=== PATIENT | male | born 2005 | race Caucasian/White ===

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

== ENCOUNTER 2023-05-27 00:06 | Emergency (ER) | payer BC, MEDICAID, SELFPAY ==
[2023-05-27 00:08] VITALS: BP 133/73; PULSE 68; RESP 18; TEMP 37; O2SAT 97; BMI 21.4
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
[2023-05-27] MEDS: amoxicillin-clav 875-125 mg Tablet 1 TAB PO (00:24)
[2023-05-27] MEDS: bacitracin ointment Pkt 1 EACH TOPICAL (00:25)
== END 2023-05-27 00:34 | disposition home or self-care (01) ==
PROVIDERS: Emergency Provider Nurse Practitioner Family
DX: S61.354A Open bite of right ring finger with damage to nail, initial encounter (principal); Y04.1XXA Assault by human bite, initial encounter; Z72.0 Tobacco use; Y07.54 Acquaintance or friend, perpetrator of maltreatment and neglect
CPT/HCPCS: 99283

== ENCOUNTER 2024-06-02 10:51 | Emergency (ER) | payer BC, MEDICAID, SELFPAY ==
[2024-06-02 11:13] VITALS: BP 124/57; PULSE 58; TEMP 36.9; O2SAT 97; BMI 21.2
[2024-06-02 12:57] VITALS: BP 122/66; PULSE 52; RESP 16; O2SAT 97
[2024-06-02] MEDS: lidocaine 2% viscous 15 mL UDC 10 ML MUCOUS MEM (13:36)
[2024-06-02] MEDS: dexamethasone 10 mg/mL INJ IM (13:36)
[2024-06-02 13:45] VITALS: BP 107/57; PULSE 51; RESP 16; O2SAT 98
--- NOTE | 2024-06-02 13:55 | ED_ITS ---
HPI - Dental/Oral General: Chief complaint: Dental/Oral Stated complaint: infection in mouth Time Seen by Provider: 06/02/24 12:58 Source: patient Mode of arrival: ambulatory Limitations: no limitations History of Present Illness: Patient is a 19-year-old male presenting to the emergency department complaining of left lower dental pain over the past few days. Reports history of multiple caries, recently stopped seeing his dentist for insurance purposes but is in the process of reestablishing. He notes swelling and pain extending to the bottom of the left face. No fever, vomiting, or other signs of systemic illness. He has been taking ibuprofen with only minimal relief of pain. MD Complaint: tooth pain Onset (ago): day(s) Duration: constant Relieving factors: NSAIDs Context: history of dental caries and poor dental care Associated symptoms: Denies ear or mastoid pain or fever(s) Related Data Previous Rx's Medication Instructions Recorded ondansetron HCl 4 mg tablet 4 mg PO Q6H PRN nausea and 04/28/22 vomiting #20 tabs hydroxyzine HCl 25 mg tablet 25 mg PO Q8H PRN n/v and anxiety 07/31/22 #20 tabs chlorpromazine 25 mg tablet 25 mg PO TID #10 tabs 11/17/22 promethazine 25 mg tablet 25 mg PO TID PRN nausea and 11/20/22 vomiting #14 tabs amoxicillin 875 mg-potassium 1 tab PO BID #14 tabs 05/27/23 clavulanate 125 mg tablet amoxicillin 875 mg-potassium 1 tab PO BID 10 days #20 tabs 06/02/24 clavulanate 125 mg tablet Allergies Allergy/AdvReac Type Severity Reaction Status Date / Time No Known Allergies Allergy Verified 06/02/24 11:17 Review of Systems General: Reports: 10 or more systems reviewed and unremarkable except in HPI and below Const: Denies: fever(s), chills or fatigue Eyes: Denies: change in vision ENMT: Reports: dental pain and sinus pain; Denies: throat pain, ear or mastoid pain or nasal discharge Card: Denies: chest pain, palpitations, swelling of feet/ankles or ligh theadedness Resp: Denies: dyspnea, productive cough or wheezing GI: Denies: abdominal pain, nausea, vomiting, diarrhea or constipation : Denies: flank pain, difficulty urinating, dysuria or urinary frequency Musc: Denies: neck pain, back pain or joint pain Skin/Breast: Denies: rash Neuro: Denies: headache(s), numbness in extremities or weakness in extremities PFSH ED PFSH: Medical History Hyperemesis Chronic nausea Bradycardia Generalized anxiety disorder with panic attacks No pertinent family history Social History Smoking and tobacco/nicotine status: current every day tobacco/nicotine user Alcohol intake: current Alcohol intake frequency: holidays/special occasions only Substance/Drug Use: current Substance/Drug use frequency: daily Physical Exam Const: COMMON NORMALS: no acute distress and no limitations GENERAL APPEARANCE: cooperative, comfortable and well developed ORIENTATION/CONSCIOUSNESS: Yes awake HENMT: COMMON NORMALS: normocephalic, atraumatic and hearing grossly normal bilaterally HEAD & SCALP: normocephalic and atraumatic TEETH & GINGIVA: Yes abnormal tooth and associated gingiva lower left tender, with associated gingival edema and enamel fractured, Yes caries, Yes multiple restorations and Yes poor dentition THROAT: posterior oropharynx normal, tonsils normal and uvula midline OTHER: Swelling noted to the left mandibular region Eye: COMMON NORMALS: Equal, round and reactive pupils present, EOMs intact bilaterally and conjunctivae normal CONJUNCTIVA: Yes conjunctivae normal PUPIL: Yes Equal, round and reactive pupils present Neck/C-Spine: COMMON NORMALS: full ROM, supple and no JVD Resp: COMMON NORMALS: normal respiratory effort, No retractions, No use of accessory muscles and clear to auscultation bilaterally AUSCULTATION: clear to auscultation bilaterally Cardio: COMMON NORMALS: no JVD, regular rate, regular rhythm, No clicks present (Cardio), No murmurs present (Cardio) and No rub (Cardio) RATE: regular rate RHYTHM: regular rhythm Extremity: COMMON NORMALS: normal to inspection, full ROM and capillary refill normal Skin: COMMON NORMALS: no rashes or lesions noted GENERAL SKIN EXAM: no rashes or lesions noted Course Vital Signs: Vital signs: Vital Signs Temperature 98.4 F 06/02/24 11:13 Pulse Rate 51 L 06/02/24 13:45 Respiratory Rate 16 06/02/24 13:45 Blood Pressure 107/57 06/02/24 13:45 Pulse Oximetry 98 06/02/24 13:45 Oxygen Delivery Me thod Room Air 06/02/24 12:57 MDM - Dental/Oral Medical Decision Making Patient presented with signs and symptoms of a dental abscess, though pain could also be coming from the fractured tooth. Will give some viscous lidocaine for this, and for the swelling provide a steroid shot. Will be started on antibiotics and encouraged to continue following up with dentist for further care and management. Return precautions given. No radiology studies performed this visit Discharge Plan Discharge Patient Disposition: Home Clinical Impression: Dental abscess, Fracture of tooth Condition: Stable Prescriptions: New amoxicillin-pot clavulanate 875-125 mg tablet 1 tab PO BID 10 Days Qty: 20 0RF No Action ondansetron HCl 4 mg tablet 4 mg PO Q6H PRN (Reason: nausea and vomiting) Qty: 20 0RF amoxicillin-pot clavulanate 875-125 mg tablet 1 tab PO BID Qty: 14 0RF hydroxyzine HCl 25 mg tablet 25 mg PO Q8H PRN (Reason: n/v and anxiety) Qty: 20 0RF chlorpromazine 25 mg tablet 25 mg PO TID Qty: 10 0RF promethazine 25 mg tablet 25 mg PO TID PRN (Reason: nausea and vomiting) Qty: 14 0RF Discharge Orders: Discharge ED (Routine); Ordered 06/02/24 Ordered By: Brendan Irene Patient Instructions: Dental Abscess (ED) Activity Restrictions/Additional Instructions: I suspect you have a dental abscess. Please take antibiotics. Continue taking Tylenol and ibuprofen at home for pain. Continue following up with dentist for further long-term evaluation and management. If you develop any high fevers, vomiting, or other concerning signs or symptoms please return to the emergency department Coding Level of Care Code ED Plate Grainer Apprentice for Annie Valverde
== END 2024-06-02 13:48 | disposition home or self-care (01) ==
PROVIDERS: Emergency Provider Physician Assistant
DX: K04.7 Periapical abscess without sinus (principal); S02.5XXA Fracture of tooth (traumatic), initial encounter for closed fracture; X58.XXXA Exposure to other specified factors, initial encounter; Z72.0 Tobacco use
CPT/HCPCS: 96372; 99284; J1100

== ENCOUNTER 2024-08-16 08:30 | Emergency (ER) | payer BC, MEDICAID, SELFPAY ==
[2024-08-16] VITALS (35 sets, daily range): BP systolic 104–143; BP diastolic 62–96; PULSE 46–74; RESP 13–55; TEMP 36.6; O2SAT 93–98; BMI 21.2
--- NOTE | 2024-08-16 08:35 | ED_ITS ---
HPI - General Adult 2 General: Chief complaint: Nausea/Vomiting/Diarrhea Stated complaint: seizure / vomiting Time Seen by Provider: 08/16/24 08:33 History of Present Illness: 19-year-old male presents emergency room with episodes of vomiting. He had had persistent vomiting that got lightheaded and dizzy passed out from description sounds as if he had a vasovagal episode. He has no history of seizures he was shaking briefly after he passed out did not have a distinct postictal phase. He had taken some Xanax and used some edible THC's last night. He has had multiple episodes in the past of hyperemesis cannabinoid syndrome. He has not had any hematemesis or coffee-ground emesis. Associated symptoms: Reports nausea and vomiting; Deny chest pain, dyspnea or rash Related Data Home Medications Medication Instructions Recorded Confirmed sucralfate 1 gram tablet 1 g PO TID 08/16/24 08/16/24 Previous Rx's Medication Instructions Recorded lorazepam 2 mg tablet (Ativan) 2 mg buccal TID PRN nausea and 08/16/24 vomiting #20 tabs olanzapine 10 mg disintegrating 10 mg PO Q8H PRN nausea and 08/16/24 tablet vomiting #20 tabs Allergies Allergy/AdvReac Type Severity Reaction Status Date / Time No Known Allergies Allergy Verified 06/02/24 11:17 Review of Systems 2 Const: Denies: fever(s) or chills Card: Denies: chest pain Resp: Denies: dyspnea GI: Reports: abdominal pain, nausea and vomiting : Denies: dysuria, urinary frequency or urinary urgency Musc: Denies: neck pain or back pain Skin/Breast: Denies: rash PFSH ED 2 PFSH: Medical History (Updated 08/16/24 @ 14:03 by Donovan Palacios DO) Cannabinoid hyperemesis syndrome Chronic nausea Bradycardia Generalized anxiety disorder with panic attacks No pertinent family history Social History Smoking and tobacco/nicotine status: current every day tobacco/nicotine user Alcohol intake: current Alcohol intake frequency: holidays/special occasions only Substance/Drug Use: current Substance/Drug use frequency: daily Physical Exam 2 Const: ORIENTATION/CONSCIOUSNESS: Yes awake, Yes oriented to person, Yes oriented to place and Yes oriented to time HENMT: COMMON NORMALS: normocephalic, atraumatic and hearing grossly normal bilaterally HEAD & SCALP: normocephalic and atraumatic Resp: COMMON NORMALS: normal respiratory effort, No retractions, No use of accessory muscles and clear to auscultation bilaterally AUSCULTATION: clear to auscultation bilaterally Cardio: COMMON NORMALS: regular rate, regular rhythm and No murmurs present (Cardio) RATE: regular rate RHYTHM: regular rhythm GI: COMMON NORMALS: Soft to palpation and No hepatosplenomegaly present A USCULTATION: Yes normoactive bowel sounds PALPATION: Yes Soft to palpation, No Tenderness to palpation present (GI), No Guarding due to palpation present (GI) and Yes No hepatosplenomegaly present Extremity: COMMON NORMALS: normal to inspection, capillary refill normal, no clubbing, cyanosis or edema, no calf tenderness and no pedal edema Neuro: SENSORIUM/ORIENTATION: Yes oriented to person, Yes oriented to place and Yes oriented to time Skin: COMMON NORMALS: no rashes or lesions noted GENERAL SKIN EXAM: no rashes or lesions noted Course 2 Vital Signs: Vital signs: Vital Signs Temperature 97.9 F 08/16/24 08:41 Pulse Rate 58 L 08/16/24 14:30 Respiratory Rate 17 08/16/24 14:00 Blood Pressure 123/74 08/16/24 14:30 Pulse Oximetry 97 08/16/24 14:30 Oxygen Delivery Me thod Room Air 08/16/24 13:05 MDM - General Adult Medical Decision Making Prolonged ER stay patient given 2 L of fluids multiple rounds of medications including Ativan and Haldol Reglan. Ultimately we were able to get his nausea vomiting to improve well enough he wished to go home we completed the IV fluids. Discharge him home with olanzapine and Ativan use as needed discussed with him the etiology of these episodes. I do not think it is seizure based on his laboratory test his CPK was up I think that was from him persistently vomiting his ammonia and lactate were not elevated. He had no further episodes while he was here. Avoid using the vape pens over the edible THC forms both of which seem to precipitate more of the hyperemesis syndrome. Laboratory tests and exam did not indicate need for CT abdomen at this time he had several in the past none of which have shown anything. Medical Records I reviewed the patient's medical records. Lab Data I reviewed the patient's lab results. 08/16/24 08:55 08/16/24 09:34 Laboratory Results WBC 6.39 10^3/uL (3.29-11.43) 08/16/24 08:55 RBC 6.04 10^6/uL (3.85-5.65) H 08/16/24 08:55 Hgb 17.20 g/dL (11.27-16.99) H 08/16/24 08:55 Hct 55.3 % (37-53) H 08/16/24 08:55 MCV 91.6 fl (82-101) 08/16/24 08:55 MCH 28.5 pg (27-33) 08/16/24 08:55 MCHC 31.1 g/dL (30-55) 08/16/24 08:55 RDW 12.7 % (12.1-15.1) 08/16/24 08:55 Plt Count 233 10^3/cmm (157-399) 08/16/24 08:55 MPV 11.2 fL (7.4-10.4) H 08/16/24 08:55 Neut % (Auto) 44.1 % 08/16/24 08:55 Lymph % (Auto) 38.3 % 08/16/24 08:55 [place] % (Auto) 14.9 % 08/16/24 08:55 Eos % (Auto) 1.3 % 08/16/24 08:55 Baso % (Auto) 0.9 % 08/16/24 08:55 Neut # (Auto) 2.82 10^3/uL (1.8-7.7) 08/16/24 08:55 Lymph # (Auto) 2.5 10^3/uL (0.8-4.8) 08/16/24 08:55 [place] # (Auto) 1.0 10^3/uL (0.2-0.9) H 08/16/24 08:55 Eos # (Auto) 0.1 10^3/uL (0.0-0.8) 08/16/24 08:55 Baso # (Auto) 0.1 10^3/uL (0.0-0.1) 08/16/24 08:55 Nucleated RBC % (auto) 0 % 08/16/24 08:55 Nucleated RBCs # 0.0 /100WBC 08/16/24 08:55 Sodium 139 mmol/L (136-145) 08/16/24 09:34 Potassium 3.5 mmol/L (3.5-5.1) 08/16/24 09:34 Chloride 101 mmol/L (98-107) 08/16/24 09:34 Carbon Dioxide 26 mmol/L (22-29) 08/16/24 09:34 Anion Gap 15.5 (5-19) 08/16/24 09:34 BUN 11 mg/dL (6-20) 08/16/24 09:34 Creatinine 1.0 mg/dL (0.7-1.2) 08/16/24 09:34 GFR Calculation 94.3 mL/min (90-130) 08/16/24 09:34 Glucose 100 mg/dL (65-115) 08/16/24 09:34 Calculated Osmolality 287 mOsm/kg (285-295) 08/16/24 09:34 Lactic Acid 1.6 mmol/L (0.5-2.2) 08/16/24 09:34 Calcium 9.9 mg/dL (8.5-10.5) 08/16/24 09:34 Magnesium 2.1 mg/dL (1.7-2.3) 08/16/24 09:34 Total Bilirubin 0.4 mg/dL (0.15-1.2) 08/16/24 09:34 AST 42 U/L (0-40) H 08/16/24 09:34 ALT 28 U/L (0-41) 08/16/24 09:34 Alkaline Phosphatase 60 U/L (40-130) 08/16/24 09:34 Ammonia 34 umol/L (16-60) 08/16/24 09:34 Creatine Kinase 716 U/L (39-308) H* 08/16/24 09:34 Total Protein 8.1 g/dL (6.6-8.7) 08/16/24 09:34 Albumin 4.8 g/dL (3.5-5.2) 08/16/24 09:34 Globulin 3.3 g/dL (1.3-4.6) 08/16/24 09:34 Urine Color Yellow (Yellow) 08/16/24 13:00 Urine Appearance Turbid (CLEAR) A 08/16/24 13:00 Urine pH 5.5 (5-7) 08/16/24 13:00 Ur Specific [place] 1.024 (1.005-1.030) 08/16/24 13:00 Urine Protein Trace (Negative) A 08/16/24 13:00 Urine Glucose (UA) Negative (Normal) 08/16/24 13:00 Urine Ketones 3+ (Negative) H 08/16/24 13:00 Urine Blood Negative (Negative) 08/16/24 13:00 Urine Nitrate Negative (Negative) 08/16/24 13:00 Urine Bilirubin Negative (Negative) 08/16/24 13:00 Urine Urobilinogen 1.0 mg/dL (Negative) 08/16/24 13:00 Ur Leukocyte Esterase Negative (Negative) 08/16/24 13:00 Urine RBC 0-2 /hpf (0-2) 08/16/24 13:00 Urine WBC 0-5 /hpf (0-5) 08/16/24 13:00 Ur Squamous Epith Cells 0-5 /hpf (0-5) 08/16/24 13:00 Amorphous Sediment 2+ /hpf 08/16/24 13:00 Urine Bacteria None seen /hpf (NONE) 08/16/24 13:00 Hyaline Casts 7.85 /lpf 08/16/24 13:00 Urine Opiates Screen Negative ng/mL (Negative) 08/16/24 13:00 Ur Barbiturates Screen Negative ng/mL (Negative) 08/16/24 13:00 Ur Phencyclidine Scrn Negative ng/mL (Negative) 08/16/24 13:00 Ur Amphetamines Screen Negative ng/mL (Negative) 08/16/24 13:00 U Benzodiazepines Scrn Positive ng/mL (Negative) H 08/16/24 13:00 Urine Cocaine Screen Negative ng/mL (Negative) 08/16/24 13:00 U Marijuana (THC) Screen Positive ng/mL (Negative) H 08/16/24 13:00 No radiology studies performed this visit Discharge Plan Discharge Patient Disposition: Home Clinical Impression: Cannabinoid hyperemesis syndrome Condition: Stable Prescriptions: New olanzapine 10 mg tablet,disintegrating 10 mg PO Q8H PRN (Reason: nausea and vomiting) Qty: 20 0RF lorazepam [Ativan] 2 mg tablet 2 mg buccal TID PRN (Reason: nausea and vomiting) Qty: 20 0RF No Action sucralfate 1 gram tablet 1 g PO TID Discharge Orders: Discharge ED (Routine); Ordered 08/16/24 Ordered By: Donovan Palacios Discharge Diet: As Directed Discharge Activity: Increase activity as tolerated Patient Instructions: Opioid Safety, Pain Management Activity Restrictions/Additional Instructions: Thank you for choosing [facility] for your healthcare needs today. It is very important that you follow up as instructed or that you return to the Emergency Department should you have concerns or if your condition changes or worsens in any way. Abstain from marijuana use. Clear liquid diet advance as tolerated. Coding Level of Care Code ED Systems Integration Engineer for Annie Valverde
[2024-08-16] MEDS: haloperidol inj 5 mg/mL INJ 1 mL 2.5 MG IM (08:44)
[2024-08-16] MEDS: LORazepam 2 mg/mL INJ 1 mL 1 MG IVP ×2 (08:46→09:53)
--- NOTE | 2024-08-16 08:56 | PC.PHAR ---
Pt had several medications on his chart for antibiotics, chlorpromazine, hydroxyzine, zofran and promethazine-Abhishek says these were all 2021 and 2022. Most current medication filled and picked up is Sucralfate 1gm tid 06/28/24 30ds.
[2024-08-16 08:59] LABS: Basophils # 0.1 10^3/uL (0.0-0.1); Basophils % 0.9 %; Eosinophils # 0.1 10^3/uL (0.0-0.8); Eosinophils % 1.3 %; Hematocrit 55.3 % (37-53); Lymphocytes # 2.5 10^3/uL (0.8-4.8); Lymphocytes % 38.3 %; Mean Corpuscular HGB Conc 31.1 g/dL (30-55); Mean Corpuscular Hemoglobin 28.5 pg (27-33); Mean Corpuscular Volume 91.6 fl (82-101); Mean Platelet Volume 11.2 fL (7.4-10.4); Monocytes % 14.9 %; Neutrophils # 2.82 10^3/uL (1.8-7.7); Neutrophils % 44.1 %; Nucleated Red Blood Cells % 0 %; Platelet Count 233 10^3/cmm (157-399); Red Blood Count 6.04 10^6/uL (3.85-5.65); Red Cell Distribution Width 12.7 % (12.1-15.1); White Blood Count 6.39 10^3/uL (3.29-11.43)
[2024-08-16] MEDS: haloperidol inj 5 mg/mL INJ 1 mL 2.5 MG IVP ×2 (09:54→12:55)
[2024-08-16] MEDS: sodium chloride 0.9% 1,000 ML 999 ML IV ×2 (09:55→12:17)
[2024-08-16 09:57] LABS: Lactic Sepsis W/Reflex 1.6 mmol/L (0.5-2.2)
[2024-08-16 09:58] LABS: Ammonia 34 umol/L (16-60)
[2024-08-16 09:59] LABS: Alanine Aminotransferase 28 U/L (0-41); Albumin Level 4.8 g/dL (3.5-5.2); Alkaline Phosphatase 60 U/L (40-130); Anion Gap 15.5 (5-19); Aspartate Amino Transferase 42 U/L (0-40); Blood Urea Nitrogen 11 mg/dL (6-20); Calcium 9.9 mg/dL (8.5-10.5); Carbon Dioxide 26 mmol/L (22-29); Chloride 101 mmol/L (98-107); Creatinine Clr Calc Pharmacy 109.8125; Globulin 3.3 g/dL (1.3-4.6); Glomerular Filtration Rate 94.3 mL/min (90-130); Glucose 100 mg/dL (65-115); Magnesium 2.1 mg/dL (1.7-2.3); Osmolality Calculated 287 mOsm/kg (285-295); Potassium 3.5 mmol/L (3.5-5.1); Sodium 139 mmol/L (136-145); Total Bilirubin 0.4 mg/dL (0.15-1.2); Total Protein 8.1 g/dL (6.6-8.7)
[2024-08-16 10:02] LABS: Creatine Phosphokinase 716 U/L (39-308)
[2024-08-16] MEDS: metoclopramide 5 mg/mL SDV 2 mL 10 MG IVP (11:25)
[2024-08-16] MEDS: LORazepam 2 mg/mL INJ 1 mL IVP (12:57)
[2024-08-16 13:08] LABS: Bilirubin Urine Negative (Negative); Blood Urine Negative (Negative); Glucose Urine UA Negative (Normal); Ketones Urine 3+ (Negative); Leukocyte Esterase Urine Negative (Negative); Nitrate Urine Negative (Negative); Protein Urine Trace (Negative); Specific Gravity, Urine 1.024 (1.005-1.030); Urine Appearance Turbid (CLEAR); Urine Color Yellow (Yellow); pH Urine 5.5 (5-7)
[2024-08-16 13:10] LABS: Add Urine Microscopic? YES; Bacteria Urine None Seen /hpf; Hyaline Casts Urine 7.85 /lpf; RBC Urine 0-2 /hpf (0-2); Squamous Epithelial Cell Urine 0-5 /hpf (0-5); WBC Urine 0-5 /hpf (0-5)
[2024-08-16 13:15] LABS: Amphetamines Screen Urine Negative (Negative); Barbiturates Screen Urine Negative (Negative); Benzodiazepines Screen Urine Positive (Negative); Cocaine Screen Urine Negative (Negative); Opiate Screen Urine Negative (Negative); PCP Screen Urine Negative (Negative); THC Screen Urine Positive (Negative)
[2024-08-16 13:44] LABS: UA Slide Review UA Slide Review Perf
[2024-08-16 13:50] LABS: Amorphous Sediment Urine 2+ /hpf
[2024-08-16 13:51] LABS: Add Urine Culture? No
== END 2024-08-16 14:30 | disposition home or self-care (01) ==
PROVIDERS: Emergency Provider Family Medicine
DX: R11.2 Nausea with vomiting, unspecified (principal); Z72.0 Tobacco use
CPT/HCPCS: 80053; 80306; 81001; 82140; 82550; 83605; 83735; 85025; 96372; 96374; 96375; 96376; 99284; J1630; J2060; J2765; J7030

== ENCOUNTER 2024-09-28 15:41 | Emergency (ER) | payer BC, MEDICAID, SELFPAY ==
[2024-09-28 15:47] VITALS: BP 107/64; PULSE 78; RESP 17; TEMP 36.8; O2SAT 97; BMI 20.7
--- NOTE | 2024-09-28 15:57 | ED_ITS ---
HPI - Burn/Smoke Inhalation General: Chief complaint: Burn/Smoke Inhalation Stated complaint: left hand burn Time Seen by Provider: 09/28/24 15:51 Source: patient Mode of arrival: ambulatory Limitations: no limitations History of Present Illness: 19-year-old male states he has increased burn to his left hand this happened prior arrival. He does have pain in the hand he rates 5 out of 10 perez are s uperficial nature denies any other perez. He is up-to-date on his tetanus Associated symptoms: Deny chest pain, fever(s), headache(s), nausea, neck pain or vomiting Related Data Home Medications ?Medication ?Instructions ?Recorded ?Confirmed sucralfate 1 gram tablet 1 g PO TID 08/16/24 08/16/24 Previous Rx's ?Medication ?Instructions ?Recorded lorazepam 2 mg tablet (Ativan) 2 mg buccal TID PRN [place]ilberto sea and 08/16/24 vomiting #20 tabs olanzapine 10 mg disintegrating 10 mg PO Q8H PRN nause a and 08/16/24 tablet vomiting #20 tabs Allergies Allergy/AdvReac Type Severity Reaction Status Date / Time No Known Allergies Allergy Verified 09/28/24 15:49 Review of Systems Const: Denies: fever(s), chills, body aches or change in appetite ENMT: Denies: throat pain or dental pain Card: Denies: chest pain Resp: Denies: dyspnea GI: Denies: abdominal pain, nausea, vomiting or diarrhea Musc: Reports: extremity pain; Denies: neck pain or back pain Skin/Breast: Denies: rash Neuro: Denies: headache(s) PFSH ED PFSH: Medical History Cannabinoid hyperemesis syndrome Chronic nausea Bradycardia Generalized anxiety disorder with panic attacks No pertinent family history Social History Smoking and tobacco/nicotine status: current every day tobacco/nicotine user Alcohol intake: current Alcohol intake frequency: holidays/special occasions only Substance/Drug Use: current Substance/Drug use frequency: daily Physical Exam Const: COMMON NORMALS: no acute distress, patient oriented x3 and healthy appearing HENMT: COMMON NORMALS: normocephalic and atraumatic HEAD & SCALP: normocephalic and atraumatic Eye: COMMON NORMALS: conjunctivae normal CONJUNCTIVA: Yes conjunctivae normal Neck/C-Spine: COMMON NORMALS: full ROM and supple Chest: COMMONS NORMALS: normal inspection of the chest Resp: COMMON NORMALS: normal respiratory effort Cardio: COMMON NORMALS: regular rate RATE: regular rate Extremity: COMMON NORMALS: full ROM Neuro: COMMON NORMALS: patient oriented x3, moves all extremities and no focal motor deficits Psych: COMMON NORMALS: mental status grossly normal, Normal thought process present and cooperative THOUGHT PROCESS: Normal thought process present Skin: NARRATIVE SKIN EXAM: Superficial burn to palm of the left hand no blister formation less than 1% Course Vital Signs: Vital signs: Vital Signs Temperature 98.2 F 09/28/24 15:47 Pulse Rate 78 09/28/24 15:47 Respiratory Rate 17 09/28/24 15:47 Blood Pressure 107/64 09/28/24 15:47 Pulse Oximetry 97 09/28/24 15:47 Oxygen Delivery Me thod Room Air 09/28/24 15:47 MDM - Burn/Smoke Inhalation Medical Decision Making Patient presents. Superficial burn he has no signs of any second or third- degree perez did place triple antibiotic ointment he is to follow-up with PCP return if worsening he understands agrees plan Medical Records I reviewed the patient's medical records. No radiology studies performed this visit Discharge Plan Discharge Patient Disposition: Home Clinical Impression: Superficial burn Condition: Stable Prescriptions: No Action sucralfate 1 gram tablet 1 g PO TID olanzapine 10 mg tablet,disintegrating 10 mg PO Q8H PRN (Reason: nausea and vomiting) Qty: 20 0RF lorazepam [Ativan] 2 mg tablet 2 mg buccal TID PRN (Reason: nausea and vomiting) Qty: 20 0RF Discharge Orders: Discharge ED (Routine); Ordered 09/28/24 Ordered By: Abdulkadir Polo Discharge Diet: Advance as tolerated Discharge Activity: Resume usual activity Patient Instructions: Superficial Burn (ED) Print Language: Kinyarwanda Coding Level of Care Code ED Filter Plant Supervisor for Annie Valverde
[2024-09-28] MEDS: HYDROcodone-acetaminophen 5-325 mg Tablet 1 TAB PO (16:02)
[2024-09-28] MEDS: neomycin-poly-bacitracin oint 0.9 gm Pkt 1 APPLIC TOPICAL (16:03)
== END 2024-09-28 16:11 | disposition home or self-care (01) ==
PROVIDERS: Emergency Provider Emergency Medicine
DX: T23.002A Burn of unspecified degree of left hand, unspecified site, initial encounter (principal); Z72.0 Tobacco use; X58.XXXA Exposure to other specified factors, initial encounter
CPT/HCPCS: 99283

== ENCOUNTER 2025-01-20 17:52 | Emergency (ER) | payer BC, MEDICAID, SELFPAY ==
[2025-01-20 17:56] VITALS: BP 126/77; PULSE 53; RESP 16; TEMP 36.7; O2SAT 100
[2025-01-20 18:26] LABS: Basophils % 0.4 %; Hematocrit 46.8 % (37-53); Lymphocytes # 0.7 10^3/uL (0.8-4.8); Lymphocytes % 13.4 %; Mean Corpuscular HGB Conc 32.5 g/dL (30-55); Mean Corpuscular Hemoglobin 29.3 pg (27-33); Mean Corpuscular Volume 90.3 fl (82-101); Mean Platelet Volume 11.1 fL (7.4-10.4); Monocytes # 0.4 10^3/uL (0.2-0.9); Monocytes % 8.1 %; Neutrophils % 77.5 %; Nucleated Red Blood Cells % 0 %; Platelet Count 236 10^3/cmm (157-399); Red Blood Count 5.18 10^6/uL (3.85-5.65); Red Cell Distribution Width 12.7 % (12.1-15.1); White Blood Count 5.29 10^3/uL (3.29-11.43)
[2025-01-20 18:44] LABS: Alanine Aminotransferase 23 U/L (0-41); Albumin Level 4.9 g/dL (3.5-5.2); Alkaline Phosphatase 72 U/L (40-130); Anion Gap 22.1 (5-19); Aspartate Amino Transferase 36 U/L (0-40); Blood Urea Nitrogen 9 mg/dL (6-20); Calcium 10.2 mg/dL (8.5-10.5); Carbon Dioxide 23 mmol/L (22-29); Chloride 103 mmol/L (98-107); Creatinine Clr Calc Pharmacy 124.5482; Globulin 3.2 g/dL (1.3-4.6); Glomerular Filtration Rate 106.5 mL/min (90-130); Glucose 124 mg/dL (65-115); Lipase 13 U/L (13-60); Osmolality Calculated 296 mOsm/kg (285-295); Potassium 5.1 mmol/L (3.5-5.1); Sodium 143 mmol/L (136-145); Total Bilirubin 0.2 mg/dL (0.15-1.2); Total Protein 8.1 g/dL (6.6-8.7)
[2025-01-20] MEDS: ondansetron 2 mg/ML SDV 2 mL 4 MG IVP (19:04)
[2025-01-20] MEDS: sodium chloride 0.9% 1,000 ML 999 ML IV (19:05)
[2025-01-20 19:15] VITALS: BP 132/76; PULSE 52; O2SAT 97
--- NOTE | 2025-01-20 19:50 | ED_ITS ---
HPI - Nausea/Vomiting/Diarrhea 2 General: Chief complaint: Nausea/Vomiting/Diarrhea Stated complaint: vomitting Time Seen by Provider: 01/20/25 18:57 History of Present Illness: 19-year-old male presents to ED with ref ractory nausea, and vomiting. This started today. Modifying factors: Patient had cannabis yesterday and has had hyperemesis cannabis in the past. He states this is similar. Complains of ongoing retching. No change in stools. Is passing gas. Pain just under bilateral ribs due to retching, otherwise no abdominal pain. No fevers. No sick contact. Associated nausea: Yes Associated symtoms: Reports fatigue and nausea; Denies anxiety, change in vision, chest pain, headache(s) or palpitations Related Data Home Medications ?Medication ?Instructions ?Recorded ?Confirmed sucralfate 1 gram tablet 1 g PO TID 08/16/24 08/16/24 Previous Rx's ?Medication ?Instructions ?Recorded lorazepam 2 mg tablet (Ativan) 2 mg buccal TID PRN [place] sea and 08/16/24 vomiting #20 tabs olanzapine 10 mg disintegrating 10 mg PO Q8H PRN nause a and 08/16/24 tablet vomiting #20 tabs ondansetron 4 mg disintegrating 4 mg PO Q8H PRN nausea and 01/20/25 tablet vomiting 4 days #10 tabs Allergies Allergy/AdvReac Type Severity Reaction Status Date / Time No Known Allergies Allergy Verified 09/28/24 15:49 Review of Systems 2 General: Reports: 10 or more systems reviewed and unremarkable except in HPI and below Const: Reports: change in appetite and fatigue; Denies: fever(s) or chills Eyes: Denies: change in vision or blurry vision Card: Denies: chest pain, palpitations or irregular heart rhythm Resp: Denies: dyspnea or productive cough GI: Reports: abdominal pain, nausea and vomiting; Denies: change in stool character : Denies: flank pain or difficulty urinating Musc: Denies: neck pain or back pain Skin/Breast: Denies: rash or pruritus Neuro: Denies: headache(s), numbness in extremities or sensory changes Psych: Denies: anxiety or depression PFS ED 2 PFSH: Medical History Cannabinoid hyperemesis syndrome Chronic nausea Bradycardia Generalized anxiety disorder with panic attacks No pertinent family history Social History Smoking and tobacco/nicotine status: current every day tobacco/nicotine user Alcohol intake: current Alcohol intake frequency: holidays/special occasions only Substance/Drug Use: current Substance/Drug use frequency: daily Physical Exam 2 Const: COMMON NORMALS: no acute distress, average body habitus, patient oriented x3, no limitations, healthy appearing, alert and well nourished G ENERAL APPEARANCE: cooperative, comfortable, well kempt and well developed O RIENTATION/CONSCIOUSNESS: Yes awake, Yes oriented to person, Yes oriented to place and Yes oriented to time HENMT: COMMON NORMALS: normocephalic, atraumatic and TM's normal bilaterally HEAD & SCALP: normocephalic and atraumatic TYMPANIC MEMBRANE: TM's normal bilaterally MOUTH: Normal oral and palatal mucosa present, lip normal and tongue normal THROAT: posterior oropharynx normal Eye: COMMON NORMALS: Equal, round and reactive pupils present, EOMs intact bilaterally, conjunctivae normal and no scleral icterus VISUAL ACUITY: Yes acuity normal CONJUNCTIVA: Yes conjunctivae normal PUPIL: Yes Equal, round and reactive pupils present Neck/C-Spine: COMMON NORMALS: full ROM and no lymphadenopathy Resp: COMMON NORMALS: normal respiratory effort and clear to auscultation bilaterally EFFORT & INSPECTION: Yes able to speak in complete sentences and No respiratory distress AUSCULTATION: clear to auscultation bilaterally Cardio: COMMON NORMALS: regular rate, regular rhythm, S1 normal heart sound present, S2 normal heart sound present and Peripheral pulses 2+ throughout R ATE: regular rate RHYTHM: regular rhythm HEART SOUNDS: S1 normal heart sound present and S2 normal heart sound present BRUITS: no abdominal aortic bruits PERIPHERAL PULSES: Peripheral pulses 2+ throughout GI: COMMON NORMALS: Normal to inspection, nondistended, normoactive bowel sounds present, Soft to palpation and non-tender INSPECTION: Yes normal to inspection, No abdominal wall ecchymosis and No abdominal distension A USCULTATION: Yes normoactive bowel sounds PALPATION: Yes Soft to palpation, No Tenderness to palpation present (GI), No Guarding due to palpation present (GI) and No Rigid due to palpation : COMMON NORMALS: Yes no CVA tenderness BLADDER/KIDNEY EXAM: Yes no CVA tenderness Back/Pelvis: COMMON NORMALS: no CVA tenderness Extremity: COMMON NORMALS: normal to inspection, full ROM and capillary refill normal Neuro: COMMON NORMALS: patient oriented x3 and CN's II-XII intact bilaterally SENSORIUM/ORIENTATION: Yes alert, Yes oriented to person, Yes oriented to place and Yes oriented to time Psych: APPEARANCE: Yes well kempt Course 2 Vital Signs: Vital signs: Vital Signs Temperature 98.1 F 01/20/25 17:56 Pulse Rate 52 L 01/20/25 19:15 Respiratory Rate 16 01/20/25 17:56 Blood Pressure 132/76 01/20/25 19:15 Pulse Oximetry 97 01/20/25 19:15 Oxygen Delivery Me thod Room Air 01/20/25 19:15 MDM - Nausea/Vomiting/Diarrhea Medical Decision Making Patient is a 19-year-old male that had cannabis yesterday, with history of hyperemesis due to cannabis that presents due to nausea and refractory vomiting. He did have some upper rib discomfort however on exam was consistent with retching. After Zofran x 1, and IV fluids, he resolved this issue. Zofran will be given here, as well as sent to the pharmacy, with the precautions to only take if needed every 8 hours, and full liquid diet, advance tomorrow as tolerated. Patient will return to the ED for further issues. Cessation of cannabis has been recommended to patient. Lab Data 01/20/25 18:19 01/20/25 18:19 Laboratory Results WBC 5.29 10^3/uL (3.29-11.43) 01/20/25 18:19 RBC 5.18 10^6/uL (3.85-5.65) 01/20/25 18:19 Hgb 15.20 g/dL (11.27-16.99) 01/20/25 18:19 Hct 46.8 % (37-53) 01/20/25 18:19 MCV 90.3 fl (82-101) 01/20/25 18:19 MCH 29.3 pg (27-33) 01/20/25 18: MCHC 32.5 g/dL (30-55) 01/20/25 18:19 RDW 12.7 % (12.1-15.1) 01/20/25 18:19 Plt Count 236 10^3/cmm (157-399) 01/20/25 18:19 MPV 11.1 fL (7.4-10.4) H 01/20/25 18:19 Neut % (Auto) 77.5 % 01/20/25 18:19 Lymph % (Auto) 13.4 % 01/20/25 18:19 [place] % (Auto) 8.1 % 01/20/25 18:19 Eos % (Auto) 0.0 % 01/20/25 18:19 Baso % (Auto) 0.4 % 01/20/25 18:19 Neut # (Auto) 4.10 10^3/uL (1.8-7.7) 01/20/25 18:19 Lymph # (Auto) 0.7 10^3/uL (0.8-4.8) L 01/20/25 18:19 [place] # (Auto) 0.4 10^3/uL (0.2-0.9) 01/20/25 18:19 Eos # (Auto) 0.0 10^3/uL (0.0-0.8) 01/20/25 18:19 Baso # (Auto) 0.0 10^3/uL (0.0-0.1) 01/20/25 18:19 Nucleated RBC % (auto) 0 % 01/20/25 18:19 Nucleated RBCs # 0.0 /100WBC 01/20/25 18:19 Sodium 143 mmol/L (136-145) 01/20/25 18:19 Potassium 5.1 mmol/L (3.5-5.1) 01/20/25 18:19 Chloride 103 mmol/L (98-107) 01/20/25 18:19 Carbon Dioxide 23 mmol/L (22-29) 01/20/25 18:19 Anion Gap 22.1 (5-19) H 01/20/25 18:19 BUN 9 mg/dL (6-20) 01/20/25 18:19 Creatinine 0.9 mg/dL (0.7-1.2) 01/20/25 18:19 GFR Calculation 106.5 mL/min (90-130) 01/20/25 18:19 Glucose 124 mg/dL (65-115) H 01/20/25 18:19 Calculated Osmolality 296 mOsm/kg (285-295) H 01/20/25 18:19 Calcium 10.2 mg/dL (8.5-10.5) 01/20/25 18:19 Total Bilirubin 0.2 mg/dL (0.15-1.2) 01/20/25 18:19 AST 36 U/L (0-40) 01/20/25 18:19 ALT 23 U/L (0-41) 01/20/25 18:19 Alkaline Phosphatase 72 U/L (40-130) 01/20/25 18:19 Total Protein 8.1 g/dL (6.6-8.7) 01/20/25 18:19 Albumin 4.9 g/dL (3.5-5.2) 01/20/25 18:19 Globulin 3.2 g/dL (1.3-4.6) 01/20/25 18:19 Lipase 13 U/L (13-60) 01/20/25 18:19 No radiology studies performed this visit Discharge Plan Discharge Patient Disposition: Home Clinical Impression: Cannabinoid hyperemesis syndrome Condition: Stable Prescriptions: New ondansetron 4 mg tablet,disintegrating 4 mg PO Q8H PRN (Reason: nausea and vomiting) 4 Days Qty: 10 0RF No Action sucralfate 1 gram tablet 1 g PO TID olanzapine 10 mg tablet,disintegrating 10 mg PO Q8H PRN (Reason: nausea and vomiting) Qty: 20 0RF lorazepam [Ativan] 2 mg tablet 2 mg buccal TID PRN (Reason: nausea and vomiting) Qty: 20 0RF Discharge Orders: Discharge ED (Routine); Ordered 01/20/25 Ordered By: Mariama Beasley Discharge Diet: Full LIquid Discharge Activity: Resume usual activity Patient Instructions: Cannabis Use Disorder (ED) Activity Restrictions/Additional Instructions: Full liquid diet for 24 hours. After 24 hours, you may utilize bland foods. Do not utilize ondansetron more than every 8 hours as needed for nausea and vomiting. Return to ED if you are not passing gas, have abdominal pain, fever, or refractory nausea and vomiting. Hold off on any more cannabis use Follow-up with your primary care physician. It is important to follow-up from this ED visit and evaluate any additional issues associated with your nausea and vomiting. Print Language: Belgian Coding Level of Care Code ED Gasser Machine Operator for Chg Fwd
[2025-01-20] MEDS: ondansetron hcl ODT 4 mg Tab PO (20:10)
== END 2025-01-20 20:13 | disposition home or self-care (01) ==
PROVIDERS: Family Medicine; Emergency Provider Physician Assistant
DX: R11.2 Nausea with vomiting, unspecified (principal); Z72.0 Tobacco use
CPT/HCPCS: 36415; 80053; 83690; 85025; 96361; 96374; 99284; J2405; J7030; Q0162

== ENCOUNTER 2025-01-27 14:47 | Emergency (ER) | payer BC, MEDICAID, SELFPAY ==
--- OUTSIDE RECORDS SUMMARY | 2016-09-16 05:15 | XMS_ITS | Continuity of Care Document ---
Author Organization [facility] Address [address] [id number] [address] Phone Care Team Providers Care Supervisor [place] Department Name Role Phone Unavailable Unavailable Unavailable Allergies, Adverse Reactions, Alerts Substance Reaction Status Criticality No Known Allergies Active No Inform ation Medications Medication Instructions Dosage Effective Dates (start - stop) Status Comments [place] 7.5 mg-325 mg tablet take 1 tablet [...] Diagnoses Date Provider Providers Copied on Encounter [facility], [id number] [place], [place], [id number], [place] tel:[phone] Dental [facility] Encounter for dental exam and cleaning w/o abnormal findings No Information [facility], [id number] isma [facility], [place], [place], [id number], [place] tel:[phone] Dental General [facility] Encounter for dental exam and cleaning w/o abnormal findings No Information Family History Family Member Type Diagnosis Age At Onset No Information Payers Payer name Insurance type Covered constitution party ID Authorjose roberto rolandodebby(s) D Medicaid [id number] Social History Type Description Quantity Date Captured [...]
[2025-01-27 14:51] VITALS: BP 132/75; PULSE 57; RESP 16; TEMP 37.7; O2SAT 99; BMI 23.6
--- OUTSIDE RECORDS SUMMARY | 2025-01-27 14:55 | XMS_ITS | Clinical Summary ---
Author Organization [facility] Address [address] [place] [address] Phone Care Team Providers Care Hinging Machine Operator Name Role Phone Unavailable Primary Care Provider Unavailabl e Medications hydrOXYzine pamoate (VISTARIL) 25 mg capsule Take 25 mg by mouth 3 times daily as needed for Itching. Active Social History Tobacco Use Types Packs/Day Years Used Date Smoking Tobacco: Every Day Cigarettes Smokeless Tobacco: Never Adolescent Education Answer Date Record ed Getting School Help Needed Not on file 03/13 Sex and Gender Information Value Date Recorded Sex Assigned at Not on file Legal Sex Male 10:14 AM CDT Gender Identity Not on file Sexual Orientation Not on file Last Filed Vital Signs Vital Sign Reading Time Taken Comments Blood Pressure 118/55 01/28/2022 10:45 AM CDT Pulse 58 01/30/2022 7:28 AM CDT Temperature 36.7 C (98.1 F) 01/30/2022 7:28 AM CDT Respiratory Rate 18 01/28/2022 10:2 3 AM CDT Oxygen Saturation 97% 01/28/2022 10: 45 AM CDT Inhaled Oxygen Concentration - - Weight 63.4 kg (139 lb 12.8 oz) 01/30/2022 7:28 AM CDT Height 170.2 cm (5' 7 ) 01/30/2022 7:28 AM CDT Body Mass Index 21.9 01/30/2022 7:28 AM CDT Plan of Treatment Health Maintenance Due Date Last Done Comments HPV VACCINES (1 - Male 3-dose series) 2018 DTAP/TDAP/TD VACCINES (1 - Tdap) 2022 HEPATITIS B VACCINES (1 of 3 - 19+ 3-dose series) 04/03 INFLUENZA VACCINE (#1) 2024 Insurance [employer] [place] MEDICAID
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
--- NOTE | 2025-01-27 14:56 | CTR_ITS ---
PROCEDURE INFORMATION: Exam: CT Head Without Contrast Exam date and time: 01/27/2025 3:28 PM Age: 19 years old Clinical indication: Altered mental status/memory loss and dizziness and syncope and collapse; Confusion or disorientation; Additional info: AMS TECHNIQUE: Imaging protocol: Computed tomography of the head without contrast. Radiation optimization: All CT scans at this facility use at least one of these dose optimization techniques: automated exposure control; mA and/or kV adjustment per patient size (includes targeted exams where dose is matched to clinical indication); or iterative reconstruction. COMPARISON: No relevant prior studies available. RADIATION DOSE METRICS: Total DLP (mGy-cm): 994.98 FINDINGS: Brain: No midline shift. Ventricles, cisterns, and sulci are normal. No mass, acute infarct, hemorrhage, or extraaxial fluid collection. Cerebral ventricles: No ventriculomegaly. Paranasal sinuses: Visualized sinuses are unremarkable. No fluid levels. Mastoid air cells: Visualized mastoid air cells are well aerated. Bones: Unremarkable. No acute fracture. Soft tissues: Unremarkable. CT/CT head wo con* [id number] IMPRESSION: No acute intracranial abnormality.
--- NOTE | 2025-01-27 14:56 | XR_ITS ---
WS: [id number] Exam: XR chest 1V portable [id number] Date/Time of Exam: 01/27/2025 3:15 PM Reason For Exam: AMS Comparison 08/30/2016. Lungs are clear. Normal cardiomediastinal silhouette. Bony structures are intact. No pleural effusion. XR/XR chest 1V portable [id number] IMPRESSION: 1. Normal chest.
--- NOTE | 2025-01-27 15:02 | ED_ITS ---
HPI - Altered Mental Status 2 General: Chief Complaint: Altered Mental Status Stated Complaint: ams Time Seen by Provider: 01/27/25 14:49 Source: patient, family and EMS Mode of arrival: EMS Limitations: altered mental status History of Present Illness: Patient is a 19-year-old male who presents to the ED via EMS with altered mental status. According to EMS, the report they got from family was that the patient was having shortness of breath and when he used someone's albuterol inhaler, he then proceeded to seize for an unspecified amount of time. Some report of unresponsiveness ? Some report of Xanex abuse ? EMS gave fluids in route and at time of my evaluation has had 1L LR and 1L NS. Upon my arrival and during my initial encounter with patient he is alert and oriented. I have personally seen patient many times through the ED and thoroughly remember him. He tells me he believes he may have got overheaded. States he has a history of hyperemesis cannabis syndrome so is trying to cut down on his using. States his appetite has not been very good since discontinuing marijuana over the past week. States he ate and then felt nauseous and went to the restroom to vomit. He does not give me any account of seizure of episode of unresponsiveness. He does admit to prior Xanex use but states he has not used in over week. Denies opiate use. Does report he has had a seizure in the past but that it has been years . He feels anxious but has a long standing history of anxiety and panic attacks. MD complaint: altered mental status (resolved now) Onset (ago): minute(s) Timing confirmed by: family member Severity: moderate Consistency of symptoms: Unknown (resolved now) Context: drug abuse and seizure disorder (due to drug use) Associated symptoms: Reports no associated symptoms; Deny depression, homicidal ideation or suicidal ideation Treatments prior to arrival: IV fluid Related Data Home Medications ?Medication ?Instructions ?Recorded ?Confirmed sucralfate 1 gram tablet 1 g PO TID 08/16/24 08/16/24 Previous Rx's ?Medication ?Instructions ?Recorded lorazepam 2 mg tablet (Ativan) 2 mg buccal TID PRN gilberto sea and 08/16/24 vomiting #20 tabs olanzapine 10 mg disintegrating 10 mg PO Q8H PRN nause a and 08/16/24 tablet vomiting #20 tabs Allergies Allergy/AdvReac Type Severity Reaction Status Date / Time No Known Allergies Allergy Verified 09/28/24 15:49 Review of Systems 2 Const: Reports: change in appetite; Denies: fever(s), chills, body aches, change in weight, fatigue or malaise Eyes: Denies: change in vision, blurry vision or photophobia Card: Denies: chest pain, palpitations, irregular heart rhythm, edema, swelling of feet/ankles, lightheadedness, syncope, pre-syncope, dyspnea on exertion, orthopnea, leg pain with exertion or acrocyanosis Resp: Denies: dyspnea, productive cough or non-productive cough GI: Reports: nausea and vomiting; Denies: abdominal pain, hematemesis, diarrhea, constipation or change in bowel habits : Denies: flank pain, difficulty urinating, dysuria, urinary frequency, urinary urgency or urinary hesitancy Musc: Denies: neck pain, back pain, extremity pain, extremity swelling, joint pain or joint swelling Skin/Breast: Denies: rash Neuro: Denies: headache(s), numbness in extremities, weakness in extremities, sensory changes, difficulty walking, dizziness, Slurred speech present or difficulty communicating thoughts Psych: Denies: depression, suicidal ideation or homicidal ideation PFSH ED 2 PFSH: Medical History Cannabinoid hyperemesis syndrome Chronic nausea Bradycardia Generalized anxiety disorder with panic attacks No pertinent family history Social History Smoking and tobacco/nicotine status: current every day tobacco/nicotine user Alcohol intake: current Alcohol intake frequency: holidays/special occasions only Substance/Drug Use: current Substance/Drug use frequency: daily Physical Exam 2 Const: COMMON NORMALS: average body habitus, patient oriented x3, no limitations, healthy appearing, alert and well nourished GENERAL APPEARANCE: cooperative and anxious ORIENTATION/CONSCIOUSNESS: Yes awake, Yes oriented to person, Yes oriented to place and Yes oriented to time OTHER: appears anxious at time of my initial exam-much improved during re-assessment HENMT: COMMON NORMALS: normocephalic and atraumatic HEAD & SCALP: normal to inspection, normocephalic and atraumatic FACE & SINUS: normal facial exam Eye: COMMON NORMALS: Equal, round and reactive pupils present and EOMs intact bilaterally GENERAL EYE: appearance normal, both eyes and all related structures and normal light reflex PUPIL: Yes Equal, round and reactive pupils present DIRECT OPHTHALMOSCOPY: Yes normal light reflex Neck/C-Spine: COMMON NORMALS: no lymphadenopathy Resp: COMMON NORMALS: normal respiratory effort and clear to auscultation bilaterally AUSCULTATION: clear to auscultation bilaterally Cardio: COMMON NORMALS: regular rate and regular rhythm RATE: regular rate RHYTHM: regular rhythm GI: COMMON NORMALS: Normal to inspection, nondistended, normoactive bowel sounds present, Soft to palpation, non-tender, No hepatosplenomegaly present and no masses PALPATION: Yes Soft to palpation and Yes No hepatosplenomegaly present : COMMON NORMALS: Yes no CVA tenderness BLADDER/KIDNEY EXAM: Yes no CVA tenderness Back/Pelvis: COMMON NORMALS: no CVA tenderness, thoracic and lumbar spine normal to inspection and no thoracic nor lumbar tenderness Extremity: COMMON NORMALS: normal to inspection, full ROM, capillary refill normal, no joint enlargement, no clubbing, cyanosis or edema, no calf tenderness and no pedal edema GENERAL: Yes normal exam except as noted Neuro: VARGAS COMA SCALE: document GCS findings Crumpler coma scale eye opening: Spontaneous Crumpler coma scale verbal response: Orientated Crumpler coma scale motor response: Obey commands Vargas coma scale total score: 15 COMMON NORMALS: patient oriented x3, CN's II-XII intact bilaterally, moves all extremities, no focal motor deficits, no sensory deficits noted and gait normal SENSORIUM/ORIENTATION: Yes alert, Yes oriented to person, Yes oriented to place and Yes oriented to time SPEECH: speech normal GAIT: Yes Normal gait present MOTOR EXAM: 5/5 motor strength present throughout Skin: COMMON NORMALS: no rashes or lesions noted GENERAL SKIN EXAM: no rashes or lesions noted Course 2 Vital Signs: Vital signs: Vital Signs Temperature 99.8 F H 01/27/25 14:51 Pulse Rate 56 L 01/27/25 15:04 Respiratory Rate 17 01/27/25 15:04 Blood Pressure 130/72 01/27/25 15:04 Pulse Oximetry 97 01/27/25 15:04 Oxygen Delivery Me thod Room Air 01/27/25 15:04 MDM - Altered Mental Status Medical Decision Making Patient with a normal mental status upon my initial encounter with him. Patient has been re-evaluated multiple times. He states he feels fine and would like to go home. His vital signs are stable. His blood work overall is nonactionable. He states he is not able to give urine. Ultimately this probably would not change any form of management here. Patient will be allowed discharge. I would like him to follow-up with primary care next week. Medical Records I reviewed the patient's medical records. Lab Data I reviewed the patient's lab results. 01/27/25 14:56 01/27/25 14:56 Radiology Impressions Chest X-Ray 01/27/25 14:56 IMPRESSION: 1. Normal chest. Head CT 01/27/25 14:56 IMPRESSION: No acute intracranial abnormality. Laboratory Results WBC 6.00 10^3/uL (3.29-11.43) 01/27/25 14:56 RBC 6.03 10^6/uL (3.85-5.65) H 01/27/25 14:56 Hgb 17.50 g/dL (11.27-16.99) H 01/27/25 14:56 Hct 53.2 % (37-53) H 01/27/25 14:56 MCV 88.2 fl (82-101) 01/27/25 14:56 MCH 29.0 pg (27-33) 01/27/25 14:56 MCHC 32.9 g/dL (30-55) 01/27/25 14:56 RDW 12.5 % (12.1-15.1) 01/27/25 14:56 Plt Count 281 10^3/cmm (157-399) 01/27/25 14:56 MPV 11.0 fL (7.4-10.4) H 01/27/25 14:56 Neut % (Auto) 43.3 % 01/27/25 14:56 Lymph % (Auto) 40.5 % 01/27/25 14:56 [place] % (Auto) 12.3 % 01/27/25 14:56 Eos % (Auto) 2.2 % 01/27/25 14:56 Baso % (Auto) 1.0 % 01/27/25 14:56 Neut # (Auto) 2.60 10^3/uL (1.8-7.7) 01/27/25 14:56 Lymph # (Auto) 2.4 10^3/uL (0.8-4.8) 01/27/25 14:56 [place] # (Auto) 0.7 10^3/uL (0.2-0.9) 01/27/25 14:56 Eos # (Auto) 0.1 10^3/uL (0.0-0.8) 01/27/25 14:56 Baso # (Auto) 0.1 10^3/uL (0.0-0.1) 01/27/25 14:56 Nucleated RBC % (auto) 0 % 01/27/25 14:56 Nucleated RBCs # 0.0 /100WBC 01/27/25 14:56 Sodium 139 mmol/L (136-145) 01/27/25 14:56 Potassium 3.9 mmol/L (3.5-5.1) 01/27/25 14:56 Chloride 96 mmol/L (98-107) L 01/27/25 14:56 Carbon Dioxide 26 mmol/L (22-29) 01/27/25 14:56 Anion Gap 20.9 (5-19) H 01/27/25 14:56 BUN 12 mg/dL (6-20) 01/27/25 14:56 Creatinine 1.0 mg/dL (0.7-1.2) 01/27/25 14:56 GFR Calculation 94.3 mL/min (90-130) 01/27/25 14:56 Glucose 94 mg/dL (65-115) 01/27/25 14:56 Calculated Osmolality 288 mOsm/kg (285-295) 01/27/25 14:56 Calcium 10.5 mg/dL (8.5-10.5) 01/27/25 14:56 Total Bilirubin 0.7 mg/dL (0.15-1.2) 01/27/25 14:56 AST 27 U/L (0-40) 01/27/25 14:56 ALT 22 U/L (0-41) 01/27/25 14:56 Alkaline Phosphatase 92 U/L (40-130) 01/27/25 14:56 Creatine Kinase 144 U/L (39-308) 01/27/25 14:56 Total Protein 9.2 g/dL (6.6-8.7) H 01/27/25 14:56 Albumin 5.2 g/dL (3.5-5.2) 01/27/25 14:56 Globulin 4.0 g/dL (1.3-4.6) 01/27/25 14:56 Salicylates < 0.3 mg/dL (3-10) L 01/27/25 14:56 Acetaminophen < 5.0 ug/mL (10-30) L 01/27/25 14:56 Ethyl Alcohol < 10 mg/dL (0-10) 01/27/25 14:56 All radiology interpretation(s) finalized by discharge Discharge Plan Discharge Patient Disposition: Home Clinical Impression: Anxiety, Episode of altered consciousness Nausea and vomiting Qualifiers: Vomiting type: unspecified Qualified Code(s): R11.2 - Nausea with vomiting, unspecified Condition: Stable Prescriptions: No Action sucralfate 1 gram tablet 1 g PO TID olanzapine 10 mg tablet,disintegrating 10 mg PO Q8H PRN (Reason: nausea and vomiting) Qty: 20 0RF lorazepam [Ativan] 2 mg tablet 2 mg buccal TID PRN (Reason: nausea and vomiting) Qty: 20 0RF Discharge Orders: Discharge ED (Routine); Ordered 01/27/25 Ordered By: Evonne Morales Patient Instructions: Patient Portal & Cecilia Instructions Activity Restrictions/Additional Instructions: As we discussed, you have indicated you feel normal would like to go home at this time. I would like you to follow-up with primary care next week for re- evaluation. You may return to the emergency department at anytime for any further concerns you may have. Print Language: Uzbek Coding Level of Care Code ED Dog Behaviorist for Annie Valverde
[2025-01-27 15:04] VITALS: BP 130/72; PULSE 56; RESP 17; O2SAT 97
[2025-01-27 15:04] LABS: Basophils # 0.1 10^3/uL (0.0-0.1); Eosinophils # 0.1 10^3/uL (0.0-0.8); Eosinophils % 2.2 %; Hematocrit 53.2 % (37-53); Lymphocytes # 2.4 10^3/uL (0.8-4.8); Lymphocytes % 40.5 %; Mean Corpuscular HGB Conc 32.9 g/dL (30-55); Mean Corpuscular Volume 88.2 fl (82-101); Monocytes # 0.7 10^3/uL (0.2-0.9); Monocytes % 12.3 %; Neutrophils % 43.3 %; Nucleated Red Blood Cells % 0 %; Platelet Count 281 10^3/cmm (157-399); Red Blood Count 6.03 10^6/uL (3.85-5.65); Red Cell Distribution Width 12.5 % (12.1-15.1)
--- NOTE | 2025-01-27 15:06 | PC.NURSE ---
pt recieved 1L NS and 1L LR.
[2025-01-27 15:35] LABS: Alanine Aminotransferase 22 U/L (0-41); Albumin Level 5.2 g/dL (3.5-5.2); Alkaline Phosphatase 92 U/L (40-130); Anion Gap 20.9 (5-19); Aspartate Amino Transferase 27 U/L (0-40); Blood Urea Nitrogen 12 mg/dL (6-20); Calcium 10.5 mg/dL (8.5-10.5); Carbon Dioxide 26 mmol/L (22-29); Chloride 96 mmol/L (98-107); Creatine Phosphokinase 144 U/L (39-308); Glomerular Filtration Rate 94.3 mL/min (90-130); Glucose 94 mg/dL (65-115); Osmolality Calculated 288 mOsm/kg (285-295); Potassium 3.9 mmol/L (3.5-5.1); Sodium 139 mmol/L (136-145); Total Bilirubin 0.7 mg/dL (0.15-1.2); Total Protein 9.2 g/dL (6.6-8.7)
[2025-01-27 15:38] LABS: Acetaminophen < 5.0 ug/mL (10-30); Alcohol Level < 10 mg/dL (0-10); Salicylate < 0.3 mg/dL (3-10)
[2025-01-27 16:01] VITALS: BP 131/67; PULSE 70; O2SAT 98
== END 2025-01-27 16:03 | disposition home or self-care (01) ==
PROVIDERS: Emergency Provider Physician Assistant
DX: F41.9 Anxiety disorder, unspecified (principal); R41.82 Altered mental status, unspecified; R11.2 Nausea with vomiting, unspecified; Z72.0 Tobacco use
CPT/HCPCS: 70450; 71045; 80053; 80307; 82550; 85025; 99284

== ENCOUNTER 2025-04-15 09:29 | Emergency (ER) | payer BC, MEDICAID, SELFPAY ==
--- OUTSIDE RECORDS SUMMARY | 2016-09-16 05:15 | XMS_ITS | Continuity of Care Document ---
Author Organization [facility] Address [address] [id number] [address] Phone Care Team Providers Care Retail Wireless Sales Consultant Name Role Phone Unavailable Unavailable Unavailable Allergies, Adverse Reactions, Alerts Substance Reaction Status Criticality No Known Allergies Active No Inform ation Medications Medication Instructions Dosage Effective Dates (start - stop) Status Comments [place] 7.5 mg-325 mg tablet take 1 tablet by oral route every 6 hours as needed 1 tablet - Active Periogard 0.12 % mouthwash swish with one capful for 30 seconds then spit out. Twice a day. DO NOT EAT OR DRINK FOR ONE HOUR FOLLOWING. - Active 1 Bottle ProAir HFA 90 mcg/actuation aerosol inhaler inhale 2 puff by inhalation route every 4 - 6 hours as needed - Active Procedures Procedure Date Removal Of Impacted Tooth Completely Bony Surgical Removal Of Erupted Tooth Requir ing Elevat IV Moderate (conscious) Sedation/analges ia, 15 Min IV Moderate (conscious) Sedation/analges ia, 15 Min IV Moderate (conscious) Sedation/analges ia, 15 Min EDR Approval Note Limited Oral Evaluation Problem Focused EDR Approval Note Advance Directives Directive Yes / No Effective Date File Name No Information Encounters Encounter Description Practice Location Reason(s) For Visit Diagnoses Date Provider Providers Copied on Encounter [facility], [id number] [place], [place], [id number], [place] tel:[phone] [facility] Encounter for dental exam and cleaning w/o abnormal findings No Information [facility], [id number] isma [facility], [place], [place], [id number], [place] tel:[phone] [facility] Encounter for dental exam and cleaning w/o abnormal findings No Information Family History Family Member Type Diagnosis Age At Onset No Information Payers Payer name Insurance type Covered libertarian ID Authorjose roberto rolandodebby(s) D Medicaid [id number] Social History Type Description Quantity Date Captured Comments Alcohol Use Details Unknown Caffeine Use Details Unknown Tobacco Use Status No Information Smoking Status No Information Sex Male Chief Complaint And Reason For Visit No Information Reason For Referral Reason For Referral No Information History Of Present Illness Encounter Date Complaint History Of Prese nt Illness No Information Functional Status Date Functional Assessmen t No Information Instructions Date Instruction Additional Infor mation Lifestyle education Related to D ental Examination Assessments Type Assessment Date No Information Patient Care Teams Name Effective Dates (start - stop) Status Members No Information
[2025-04-15 09:31] VITALS: BP 142/73; PULSE 86; RESP 22; O2SAT 98; BMI 21.2
--- OUTSIDE RECORDS SUMMARY | 2025-04-15 09:37 | XMS_ITS | Clinical Summary ---
Author Organization [facility] Address [address] [place] [address] Phone Care Team Providers Care Refinisher Name Role Phone Unavailable Primary Care Provider [...] 19+ 3-dose series) 04/03 INFLUENZA VACCINE (#1) 2025 Insurance [employer] [place] MEDICAID
[2025-04-15 09:49] LABS: Hematocrit 46.8 % (37-53); Hemoglobin 15.70 g/dL (11.27-16.99); Mean Corpuscular HGB Conc 33.5 g/dL (30-55); Mean Corpuscular Hemoglobin 28.9 pg (27-33); Mean Corpuscular Volume 86.2 fl (82-101); Nucleated Red Blood Cells % 0 %; Platelet Count 231 10^3/cmm (157-399); Red Blood Count 5.43 10^6/uL (3.85-5.65); White Blood Count 6.94 10^3/uL (3.29-11.43)
--- NOTE | 2025-04-15 09:49 | ED_ITS ---
HPI - Nausea/Vomiting/Diarrhea 2 General: Chief complaint: Nausea/Vomiting/Diarrhea Stated complaint: NVD Time Seen by Provider: 04/15/25 09:38 History of Present Illness: 20-year-old male presents emergency room complaining of nausea and vomiting. He believes it is cannabis induced. He has had this several times before he says he has had it for the last couple of days it got significantly worse she thought to be the weather through it up until this morning. He presents morning with continuous dry heaving. He denies any hematochezia melena hematemesis or coffee-ground emesis. He has not had any fever. In the past we treated him with lorazepam and olanzapine he had success with it but did not have any to use today. He has generalized abdominal pain from retching denies any dysuria Associated nausea: Yes Associated symtoms: Reports nausea; Denies chest pain or dysuria Related Data Home Medications ?Medication ?Instructions ?Recorded ?Confirmed sucralfate 1 gram tablet 1 g PO TID 08/16/24 08/16/24 Previous Rx's ?Medication ?Instructions ?Recorded lorazepam 2 mg tablet (Ativan) 2 mg buccal TID PRN gilberto sea and 08/16/24 vomiting #20 tabs olanzapine 10 mg disintegrating 10 mg PO Q8H PRN nause a and 08/16/24 tablet vomiting #20 tabs lorazepam 2 mg tablet 2 mg buccal Q6H PRN nausea a nd 04/15/25 vomiting #10 tabs olanzapine 10 mg disintegrating 10 mg PO Q8H PRN nause a and 04/15/25 tablet vomiting #10 tabs Allergies Allergy/AdvReac Type Severity Reaction Status Date / Time No Known Allergies Allergy Verified 09/28/24 15:49 Review of Systems 2 Const: Denies: fever(s) or chills Card: Denies: chest pain Resp: Denies: dyspnea GI: Reports: abdominal pain, nausea and vomiting; Denies: hematemesis, coffee ground emesis, hematochezia or melena : Denies: dysuria, urinary frequency or urinary urgency Musc: Denies: neck pain or back pain Skin/Breast: Denies: rash PFSH ED 2 PFSH: Medical History Cannabinoid hyperemesis syndrome Chronic nausea Bradycardia Generalized anxiety disorder with panic attacks No pertinent family history Social History Smoking and tobacco/nicotine status: current every day tobacco/nicotine user Alcohol intake: current Alcohol intake frequency: holidays/special occasions only Substance/Drug Use: current Substance/Drug use frequency: daily Physical Exam 2 Const: ORIENTATION/CONSCIOUSNESS: Yes awake, Yes oriented to person, Yes oriented to place and Yes oriented to time HENMT: COMMON NORMALS: normocephalic, atraumatic and hearing grossly normal bilaterally HEAD & SCALP: normocephalic and atraumatic Resp: COMMON NORMALS: normal respiratory effort, No retractions, No use of accessory muscles and clear to auscultation bilaterally AUSCULTATION: clear to auscultation bilaterally Cardio: COMMON NORMALS: regular rate, regular rhythm and No murmurs present (Cardio) RATE: regular rate RHYTHM: regular rhythm GI: COMMON NORMALS: No hepatosplenomegaly present AUSCULTATION: Yes normoactive bowel sounds PALPATION: Yes Tenderness to palpation present (GI) (Diffuse), No Guarding due to palpation present (GI) and Yes No hepatosplenomegaly present Extremity: COMMON NORMALS: normal to inspection, capillary refill normal, no clubbing, cyanosis or edema, no calf tenderness and no pedal edema Neuro: SENSORIUM/ORIENTATION: Yes oriented to person, Yes oriented to place and Yes oriented to time Skin: COMMON NORMALS: no rashes or lesions noted GENERAL SKIN EXAM: no rashes or lesions noted Course 2 Vital Signs: Vital signs: Vital Signs Pulse Rate 86 04/15/25 09:31 Respiratory Rate 22 H 04/15/25 09:31 Blood Pressure 142/73 04/15/25 09:31 Pulse Oximetry 98 04/15/25 09:31 Oxygen Delivery Me thod Room Air 04/15/25 09:31 MDM - Nausea/Vomiting/Diarrhea Medical Decision Making Initial workup started patient given IV fluids and antiemetics. We are waiting on labs to complete and patient decided he wished to leave. Discussed with the patient would prefer to give him some more fluids and will follow-up on his lab work he is insistent on leaving patient is discharged home with olanzapine and Ativan to use as needed discussed with him THC use patient was aware when he arrived that this was most likely related to his THC use. He admits to recent heavy use. Discharge home per his request if he wishes he was advised that he is welcome to return at any point for further evaluation and treatment if needed. Medical Records I reviewed the patient's medical records. Lab Data I reviewed the patient's lab results. 04/15/25 09:43 04/15/25 09:43 Laboratory Results WBC 6.94 10^3/uL (3.29-11.43) 04/15/25 09:43 RBC 5.43 10^6/uL (3.85-5.65) 04/15/25 09:43 Hgb 15.70 g/dL (11.27-16.99) 04/15/25 09:43 Hct 46.8 % (37-53) 04/15/25 09:43 MCV 86.2 fl (82-101) 04/15/25 09:43 MCH 28.9 pg (27-33) 04/15/25 09:43 MCHC 33.5 g/dL (30-55) 04/15/25 09:43 RDW 12.2 % (12.1-15.1) 04/15/25 09:43 Plt Count 231 10^3/cmm (157-399) 04/15/25 09:43 MPV 10.6 fL (7.4-10.4) H 04/15/25 09:43 Neut % (Auto) 61.0 % 04/15/25 09:43 Lymph % (Auto) 26.5 % 04/15/25 09:43 [place] % (Auto) 9.8 % 04/15/25 09:43 Eos % (Auto) 1.7 % 04/15/25 09:43 Baso % (Auto) 0.4 % 04/15/25 09:43 Neut # (Auto) 4.23 10^3/uL (1.8-7.7) 04/15/25 09:43 Lymph # (Auto) 1.8 10^3/uL (0.8-4.8) 04/15/25 09:43 [place] # (Auto) 0.7 10^3/uL (0.2-0.9) 04/15/25 09:43 Eos # (Auto) 0.1 10^3/uL (0.0-0.8) 04/15/25 09:43 Baso # (Auto) 0.0 10^3/uL (0.0-0.1) 04/15/25 09:43 Nucleated RBC % (auto) 0 % 04/15/25 09:43 Nucleated RBCs # 0.0 /100WBC 04/15/25 09:43 Sodium 142 mmol/L (136-145) 04/15/25 09:43 Potassium 3.8 mmol/L (3.5-5.1) 04/15/25 09:43 Chloride 103 mmol/L (98-107) 04/15/25 09:43 Carbon Dioxide 26 mmol/L (22-29) 04/15/25 09:43 Anion Gap 16.8 (5-19) 04/15/25 09:43 BUN 12 mg/dL (6-20) 04/15/25 09:43 Creatinine 1.0 mg/dL (0.7-1.2) 04/15/25 09:43 GFR Calculation 93.4 mL/min (90-130) 04/15/25 09:43 Glucose 137 mg/dL (65-115) H 04/15/25 09:43 Calculated Osmolality 296 mOsm/kg (285-295) H 04/15/25 09:43 Calcium 9.8 mg/dL (8.5-10.5) 04/15/25 09:43 Total Bilirubin 0.3 mg/dL (0.15-1.2) 04/15/25 09:43 AST 32 U/L (0-40) 04/15/25 09:43 ALT 25 U/L (0-41) 04/15/25 09:43 Alkaline Phosphatase 71 U/L (40-130) 04/15/25 09:43 Total Protein 8.2 g/dL (6.6-8.7) 04/15/25 09:43 Albumin 4.6 g/dL (3.5-5.2) 04/15/25 09:43 Globulin 3.6 g/dL (1.3-4.6) 04/15/25 09:43 No radiology studies performed this visit Discharge Plan Discharge Patient Disposition: Home Clinical Impression: Cannabinoid hyperemesis syndrome Condition: Stable Prescriptions: New lorazepam 2 mg tablet 2 mg buccal Q6H PRN (Reason: nausea and vomiting) Qty: 10 0RF olanzapine 10 mg tablet,disintegrating 10 mg PO Q8H PRN (Reason: nausea and vomiting) Qty: 10 0RF No Action sucralfate 1 gram tablet 1 g PO TID olanzapine 10 mg tablet,disintegrating 10 mg PO Q8H PRN (Reason: nausea and vomiting) Qty: 20 0RF lorazepam [Ativan] 2 mg tablet 2 mg buccal TID PRN (Reason: nausea and vomiting) Qty: 20 0RF Discharge Orders: Discharge ED (Routine); Ordered 04/15/25 Ordered By: Donovan Palacios Patient Instructions: Opioid Safety, Pain Management, Patient Portal & Cecilia Instructions Activity Restrictions/Additional Instructions: [facility] you [facility]. It is very important that you follow up as instructed or that you return to the Emergency Department should you have concerns or if your condition changes or worsens in any way. Emergency department visits are focused on emergent conditions, in some cases you may require further evaluation on an outpatient basis. You were seen in the emergency room with persistent nausea vomiting this is likely caused by use of marijuana products. This condition is called hyperemesis cannabinoid syndrome. We had given you some medicines that intended to get some lab work and give you more fluids and additional medications as needed to control your symptoms you have elected to leave after the first dose of medicines while you are still having vomiting. You are welcome to return if you have further symptoms. You were given lorazepam and olanzapine use as directed for persistent nausea vomiting can also use capsaicin cream on your abdomen and hot showers also been found to be effective. Avoid use of marijuana products. (Please note that included in your discharge packet is information concerning opioid safety and pain management. This information is given to all patients were discharged from the ER regardless of their discharge diagnosis or the medicines they usually take or are prescribed.) Print Language: Japanese Coding Level of Care Code ED Kick Plate Installer for Annie Valverde
[2025-04-15] MEDS: haloperidol inj 5 mg/mL INJ 1 mL 2.5 MG IVP (10:02)
[2025-04-15] MEDS: LORazepam 1 MG/0.5 ML injection IVP (10:02)
[2025-04-15 10:06] LABS: Alanine Aminotransferase 25 U/L (0-41); Albumin Level 4.6 g/dL (3.5-5.2); Alkaline Phosphatase 71 U/L (40-130); Anion Gap 16.8 (5-19); Aspartate Amino Transferase 32 U/L (0-40); Blood Urea Nitrogen 12 mg/dL (6-20); Calcium 9.8 mg/dL (8.5-10.5); Carbon Dioxide 26 mmol/L (22-29); Chloride 103 mmol/L (98-107); Creatinine Clr Calc Pharmacy 108.8897; Globulin 3.6 g/dL (1.3-4.6); Glucose 137 mg/dL (65-115); Osmolality Calculated 296 mOsm/kg (285-295); Potassium 3.8 mmol/L (3.5-5.1); Sodium 142 mmol/L (136-145); Total Protein 8.2 g/dL (6.6-8.7)
--- NOTE | 2025-04-15 10:31 | PC.NURSE ---
pt came to nurses station and had ripped his iv out. pt stated i'm leaving . dr lowe notified and spoke to pt. pt left while dr lowe was working on d/c paperwork.
== END 2025-04-15 10:30 | disposition home or self-care (01) ==
PROVIDERS: Emergency Provider Family Medicine
DX: R11.2 Nausea with vomiting, unspecified (principal); F12.90 Cannabis use, unspecified, uncomplicated; Z72.0 Tobacco use
CPT/HCPCS: 36415; 80053; 85025; 96361; 96374; 96375; 99284; J1630; J2060; J7030

== ENCOUNTER 2025-06-19 10:14 | Emergency (ER) | payer BC, MEDICAID, SELFPAY ==
[2025-06-19 10:18] VITALS: BP 104/64; PULSE 51; RESP 17; TEMP 36.2; O2SAT 100; BMI 20.9
[2025-06-19 11:15] LABS: Hematocrit 46.8 % (37-53); Hemoglobin 15.20 g/dL (11.27-16.99); Mean Corpuscular HGB Conc 32.5 g/dL (30-55); Mean Corpuscular Hemoglobin 29.0 pg (27-33); Mean Corpuscular Volume 89.3 fl (82-101); Nucleated Red Blood Cells % 0 %; Platelet Count 230 10^3/cmm (157-399); Red Blood Count 5.24 10^6/uL (3.85-5.65); White Blood Count 9.31 10^3/uL (3.29-11.43)
--- NOTE | 2025-06-19 11:30 | ED_ITS ---
HPI - Nausea/Vomiting/Diarrhea 2 General: Chief complaint: Nausea/Vomiting/Diarrhea Stated complaint: n/v/d/f Time Seen by Provider: 06/19/25 11:16 History of Present Illness: 20-year-old male presents emergency room with persistent nausea and vomiting has been trying to cut back on THC. Has had multiple episodes ER visits for hyper emesis cannabinoid syndrome. he denies any hemoptysis no hematemesis or coffee- ground emesis. Denies any hemoptysis no fever sweats or chills. No dysuria urgency or frequency Associated symtoms: Denies chest pain or dysuria Related Data Home Medications ?Medication ?Instructions ?Recorded ?Confirmed sucralfate 1 gram tablet 1 g PO TID 08/16/24 08/16/24 Previous Rx's ?Medication ?Instructions ?Recorded promethazine 25 mg tablet 25 mg PO Q6H PRN nausea and 06/19/25 vomiting #20 tabs Allergies Allergy/AdvReac Type Severity Reaction Status Date / Time No Known Allergies Allergy Verified 09/28/24 15:49 Review of Systems 2 Const: Denies: fever(s) or chills Card: Denies: chest pain Resp: Denies: dyspnea GI: Denies: abdominal pain : Denies: dysuria, urinary frequency or urinary urgency Musc: Denies: neck pain or back pain Skin/Breast: Denies: rash PFSH ED 2 PFSH: Medical History Cannabinoid hyperemesis syndrome Chronic nausea Bradycardia Generalized anxiety disorder with panic attacks No pertinent family history Social History Smoking and tobacco/nicotine status: current every day tobacco/nicotine user Alcohol intake: current Alcohol intake frequency: holidays/special occasions only Substance/Drug Use: current Substance/Drug use frequency: daily Physical Exam 2 Const: GENERAL APPEARANCE: cooperative ORIENTATION/CONSCIOUSNESS: Yes awake, Yes oriented to person, Yes oriented to place and Yes oriented to time HENMT: COMMON NORMALS: normocephalic, atraumatic and hearing grossly normal bilaterally HEAD & SCALP: normocephalic and atraumatic Resp: COMMON NORMALS: normal respiratory effort, No retractions, No use of accessory muscles and clear to auscultation bilaterally AUSCULTATION: clear to auscultation bilaterally Cardio: COMMON NORMALS: regular rate, regular rhythm and No murmurs present (Cardio) RATE: regular rate RHYTHM: regular rhythm GI: COMMON NORMALS: Soft to palpation and No hepatosplenomegaly present A USCULTATION: Yes normoactive bowel sounds PALPATION: Yes Soft to palpation, No Tenderness to palpation present (GI), No Guarding due to palpation present (GI) and Yes No hepatosplenomegaly present Extremity: COMMON NORMALS: normal to inspection, capillary refill normal, no clubbing, cyanosis or edema, no calf tenderness and no pedal edema Neuro: SENSORIUM/ORIENTATION: Yes oriented to person, Yes oriented to place and Yes oriented to time Skin: COMMON NORMALS: no rashes or lesions noted GENERAL SKIN EXAM: no rashes or lesions noted Course 2 Vital Signs: Vital signs: Vital Signs Temperature 97.1 F L 06/19/25 10:18 Pulse Rate 51 L 06/19/25 10:18 Respiratory Rate 17 06/19/25 10:18 Blood Pressure 134/83 06/19/25 12:43 Pulse Oximetry 99 06/19/25 12:43 Oxygen Delivery Me thod Room Air 06/19/25 10:18 MDM - Nausea/Vomiting/Diarrhea Medical Decision Making Improved after medications and fluids. Patient wishes to go home. Abdominal exam is benign laboratory test unremarkable I do not to get benefit from any advanced imaging. Will discharge home with promethazine encouraged him to continue to abstain from THC products Medical Records I reviewed the patient's medical records. Lab Data I reviewed the patient's lab results. 06/19/25 11:05 06/19/25 11:05 Laboratory Results WBC 9.31 10^3/uL (3.29-11.43) 06/19/25 11:05 RBC 5.24 10^6/uL (3.85-5.65) 06/19/25 11:05 Hgb 15.20 g/dL (11.27-16.99) 06/19/25 11:05 Hct 46.8 % (37-53) 06/19/25 11:05 MCV 89.3 fl (82-101) 06/19/25 11:05 MCH 29.0 pg (27-33) 06/19/25 11:05 MCHC 32.5 g/dL (30-55) 06/19/25 11:05 RDW 12.7 % (12.1-15.1) 06/19/25 11:05 Plt Count 230 10^3/cmm (157-399) 06/19/25 11:05 MPV 11.3 fL (7.4-10.4) H 06/19/25 11:05 Neut % (Auto) 77.6 % 06/19/25 11:05 Lymph % (Auto) 13.2 % 06/19/25 11:05 [place] % (Auto) 8.1 % 06/19/25 11:05 Eos % (Auto) 0.1 % 06/19/25 11:05 Baso % (Auto) 0.5 % 06/19/25 11:05 Neut # (Auto) 7.22 10^3/uL (1.8-7.7) 06/19/25 11:05 Lymph # (Auto) 1.2 10^3/uL (0.8-4.8) 06/19/25 11:05 [place] # (Auto) 0.8 10^3/uL (0.2-0.9) 06/19/25 11:05 Eos # (Auto) 0.0 10^3/uL (0.0-0.8) 06/19/25 11:05 Baso # (Auto) 0.1 10^3/uL (0.0-0.1) 06/19/25 11:05 Nucleated RBC % (auto) 0 % 06/19/25 11:05 Nucleated RBCs # 0.0 /100WBC 06/19/25 11:05 Sodium 142 mmol/L (136-145) 06/19/25 11:05 Potassium 4.4 mmol/L (3.5-5.1) 06/19/25 11:05 Chloride 101 mmol/L (98-107) 06/19/25 11:05 Carbon Dioxide 29 mmol/L (22-29) 06/19/25 11:05 Anion Gap 16.4 (5-19) 06/19/25 11:05 BUN 12 mg/dL (6-20) 06/19/25 11:05 Creatinine 0.8 mg/dL (0.7-1.2) 06/19/25 11:05 GFR Calculation 120.9 mL/min (90-130) 06/19/25 11:05 Glucose 135 mg/dL (65-115) H 06/19/25 11:05 Calculated Osmolality 296 mOsm/kg (285-295) H 06/19/25 11:05 Calcium 10.1 mg/dL (8.5-10.5) 06/19/25 11:05 Total Bilirubin 0.3 mg/dL (0.15-1.2) 06/19/25 11:05 AST 36 U/L (0-40) 06/19/25 11:05 ALT 26 U/L (0-41) 06/19/25 11:05 Alkaline Phosphatase 68 U/L (40-130) 06/19/25 11:05 Total Protein 8.0 g/dL (6.6-8.7) 06/19/25 11:05 Albumin 5.0 g/dL (3.5-5.2) 06/19/25 11:05 Globulin 3.0 g/dL (1.3-4.6) 06/19/25 11:05 Lipase 22 U/L (13-60) 06/19/25 11:05 No radiology studies performed this visit Discharge Plan Discharge Patient Disposition: Home Clinical Impression: Cannabinoid hyperemesis syndrome Condition: Stable Prescriptions: New promethazine 25 mg tablet 25 mg PO Q6H PRN (Reason: nausea and vomiting) Qty: 20 0RF Discontinued olanzapine 10 mg tablet,disintegrating 10 mg PO Q8H PRN (Reason: nausea and vomiting) Qty: 20 0RF lorazepam [Ativan] 2 mg tablet 2 mg buccal TID PRN (Reason: nausea and vomiting) Qty: 20 0RF lorazepam 2 mg tablet 2 mg buccal Q6H PRN (Reason: nausea and vomiting) Qty: 10 0RF olanzapine 10 mg tablet,disintegrating 10 mg PO Q8H PRN (Reason: nausea and vomiting) Qty: 10 0RF No Action sucralfate 1 gram tablet 1 g PO TID Discharge Orders: Discharge ED (Routine); Ordered 06/19/25 Ordered By: Donovan Palacios Discharge Diet: Advance as tolerated Discharge Activity: Increase activity as tolerated Patient Instructions: Opioid Safety, Pain Management, Patient Portal & Cecilia Instructions Activity Restrictions/Additional Instructions: [facility] your healthcare needs today. It is very important that you follow up as instructed or that you return to the Emergency Department should you have concerns or if your condition changes or worsens in any way. Emergency department visits are focused on emergent conditions, in some cases you may require further evaluation on an outpatient basis. You were seen emergency room with hyperemesis. This can be related to your THC use when people stop it may take a few weeks for the symptoms to resolve. Would encourage you to continue to abstain from THC products. You are given a prescription for promethazine to use as needed. Clear liquid diet and advance as tolerated. (Please note that included in your discharge packet is information concerning opioid safety and pain management. This information is given to all patients were discharged from the ER regardless of their discharge diagnosis or the medicines they usually take or are prescribed.) Print Language: Slovak Coding Level of Care Code ED Hydrographic Engineer for Annie Valverde
[2025-06-19] MEDS: LORazepam 2 mg/mL INJ 1 mL IVP (11:39)
[2025-06-19] MEDS: haloperidol inj 5 mg/mL INJ 1 mL 2.5 MG IVP (11:39)
[2025-06-19 11:40] LABS: Alanine Aminotransferase 26 U/L (0-41); Albumin Level 5.0 g/dL (3.5-5.2); Alkaline Phosphatase 68 U/L (40-130); Anion Gap 16.4 (5-19); Aspartate Amino Transferase 36 U/L (0-40); Blood Urea Nitrogen 12 mg/dL (6-20); Calcium 10.1 mg/dL (8.5-10.5); Carbon Dioxide 29 mmol/L (22-29); Chloride 101 mmol/L (98-107); Globulin 3.0 g/dL (1.3-4.6); Glucose 135 mg/dL (65-115); Lipase 22 U/L (13-60); Osmolality Calculated 296 mOsm/kg (285-295); Potassium 4.4 mmol/L (3.5-5.1); Sodium 142 mmol/L (136-145); Total Protein 8.0 g/dL (6.6-8.7)
[2025-06-19 11:50] VITALS: BP 130/94; O2SAT 93
[2025-06-19 12:43] VITALS: BP 134/83; O2SAT 99
--- NOTE | 2025-06-19 13:25 | PC.NURSE ---
This nurse walked in to pts room to check pts fluids and saw the pt had ripped out IV due to being mad about DC. Pt did not want his arm wrapped with coban and refused DC vitals.
== END 2025-06-19 13:27 | disposition home or self-care (01) ==
PROVIDERS: Physician Assistant; Emergency Provider Family Medicine
DX: R11.16 Cannabis hyperemesis syndrome (principal); Z72.0 Tobacco use; F12.90 Cannabis use, unspecified, uncomplicated
CPT/HCPCS: 36415; 80053; 83690; 85025; 96361; 96374; 96375; 99285; J1630; J2060; J7030

== ENCOUNTER 2025-07-20 18:45 | Emergency (ER) | payer BC, MEDICAID, SELFPAY ==
[2025-07-20 18:48] VITALS: BP 149/75; PULSE 63; RESP 16; TEMP 36.6; O2SAT 98; BMI 21.2
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
--- OUTSIDE RECORDS SUMMARY | 2025-07-20 18:49 | XMS_ITS | Clinical Summary ---
Author Organization Zena Steele [facility] Address [address] [place] [address] Phone Care Team Providers Care Mathematics Faculty Member Name Role Phone Unavailable Primary Care Provider [...]
--- NOTE | 2025-07-20 18:51 | ECG_ITS ---
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
--- NOTE | 2025-07-20 19:13 | XRR_ITS ---
PROCEDURE INFORMATION: Exam: XR Chest Exam date and time: 07/20/2025 7:23 PM Age: 20 years old Clinical indication: Pain; Other: Cp; Additional info: Chest pain TECHNIQUE: Imaging protocol: Radiologic exam of the chest. 1 image(s) are submitted. Views: 1 view. COMPARISON: CR XR chest 1V portable [id number] 01/27/2025 3:15 PM FINDINGS: Lungs: Unremarkable. No consolidation. Pleural spaces: Unremarkable. No pleural effusion. No pneumothorax. Heart/Mediastinum: Unremarkable. No cardiomegaly. Bones/joints: Unremarkable. XR/XR chest 1V portable [id number] IMPRESSION: No acute findings.
[2025-07-20 20:00] VITALS: BP 144/70; PULSE 54; O2SAT 98
[2025-07-20 20:30] VITALS: BP 111/64; PULSE 46; O2SAT 96
[2025-07-20 21:00] VITALS: BP 130/70; PULSE 53; O2SAT 98
[2025-07-20] MEDS: ondansetron 2 mg/ML SDV 2 mL 4 MG IVP (21:12)
[2025-07-20 21:14] LABS: Hematocrit 45.5 % (37-53); Hemoglobin 15.20 g/dL (11.27-16.99); Mean Corpuscular HGB Conc 33.4 g/dL (30-55); Mean Corpuscular Hemoglobin 28.6 pg (27-33); Mean Corpuscular Volume 85.7 fl (82-101); Nucleated Red Blood Cells % 0 %; Platelet Count 217 10^3/cmm (157-399); Red Blood Count 5.31 10^6/uL (3.85-5.65); White Blood Count 6.75 10^3/uL (3.29-11.43)
[2025-07-20 21:30] LABS: Troponin(5th) Baseline 24 ng/L (0-15)
[2025-07-20 21:37] LABS: Alanine Aminotransferase 22 U/L (0-41); Albumin Level 4.9 g/dL (3.5-5.2); Alkaline Phosphatase 60 U/L (40-130); Anion Gap 16.2 (5-19); Aspartate Amino Transferase 28 U/L (0-40); Blood Urea Nitrogen 15 mg/dL (6-20); Calcium 10.0 mg/dL (8.5-10.5); Carbon Dioxide 28 mmol/L (22-29); Chloride 98 mmol/L (98-107); Globulin 2.4 g/dL (1.3-4.6); Glucose 88 mg/dL (65-115); Osmolality Calculated 286 mOsm/kg (285-295); Potassium 4.2 mmol/L (3.5-5.1); Sodium 138 mmol/L (136-145); Total Protein 7.3 g/dL (6.6-8.7)
[2025-07-21 00:50] LABS: CRP High Sensitivity Cardiac < 0.150 mg/dL (0.0-0.3)
--- NOTE | 2025-07-21 05:05 | ED_ITS ---
HPI - Chest Pain 2 General: Chief Complaint: Chest Pain Stated Complaint: Chest pain,SOB,Fever Time Seen by Provider: 07/20/25 20:08 History of Present Illness: Patient is a 20-year-old male with no past medical history who presents to the ED after 3 days of a cough, sinus congestion, shortness of breath and chest pain, cough, fatigue and a generalized headache. He has had low-grade fevers at home, no NVD, no abdominal pain, has had a slightly decreased p.o. intake, no urinary changes, has not recently been on antibiotics. Associated symptoms: Reports dyspnea and fever(s) Related Data Home Medications ?Medication ?Instructions ?Recorded ?Confirmed sucralfate 1 gram tablet 1 g PO TID 08/16/24 08/16/24 Previous Rx's ?Medication ?Instructions ?Recorded promethazine 25 mg tablet 25 mg PO Q6H PRN nausea and 06/19/25 vomiting #20 tabs celecoxib 100 mg capsule (Celebrex) 100 mg PO Q12H eric st/rib pain #20 07/20/25 caps cyclobenzaprine 10 mg tablet 10 mg PO TID PRN muscle s pasm #20 07/20/25 tabs Allergies Allergy/AdvReac Type Severity Reaction Status Date / Time No Known Allergies Allergy Verified 09/28/24 15:49 Review of Systems 2 General: Reports: 10 or more systems reviewed and unremarkable except in HPI and below Const: Reports: fever(s), change in appetite and fatigue Card: Reports: chest pain Resp: Reports: dyspnea and non-productive cough PFSH ED 2 PFSH: Medical History (Updated 07/20/25 @ 23:28 by Vince Chanel DO) Cannabinoid hyperemesis syndrome Chronic nausea Bradycardia Generalized anxiety disorder with panic attacks No pertinent family history Social History Smoking and tobacco/nicotine status: current every day tobacco/nicotine user Alcohol intake: current Alcohol intake frequency: holidays/special occasions only Substance/Drug Use: current Substance/Drug use frequency: daily Physical Exam 2 Narrative: EXAM NARRATIVE: Patient appears mildly fatigued but nontoxic, afebrile, vital stable on arrival, no acute distress. Breathing comfortably on room air, mild nasal secretions with referred upper airway breath sounds, no wheezes or crackles, no increased work of breathing, saturating well, no signs of respiratory distress. Abdomen soft, nontender and nondistended. Normal sinus rhythm with no murmurs, no leg swelling, 2+ pulses throughout. GCS 15, spontaneously and symmetrically moving all 4 extremities. Course 2 Vital Signs: Vital signs: Vital Signs Temperature 97.9 F 07/20/25 18:48 Pulse Rate 53 L 07/20/25 21:00 Respiratory Rate 16 07/20/25 18:48 Blood Pressure 130/70 07/20/25 21:00 Pulse Oximetry 98 07/20/25 21:00 Oxygen Delivery Me thod Room Air 07/20/25 21:00 MDM - Chest Pain Medical Decision Making -ddx: URI, pneumonia, costochondritis, pleurisy, dehydration, electrolyte abnormality, ACS, dysrhythmia, pericarditis - Patient with a few days of seemingly worsening symptomatic URI, has some associated pleuritic chest pain and has been having fits of coughing but overall looks well, nontoxic, stable vitals, has not recently been on antibiotics. Will start with Toradol, fluids, obtain chest x-ray and basic and infectious labs and reassess. - Chest x-ray negative for any pneumonia, pneumothorax, cardiomegaly, fluid overload, rib fracture. -EKG: Normal sinus rhythm with likely benign early repolarization, no interval prolongation, no reciprocal ST changes. - Patient with reassuring labs, initial troponin was 24 but negative delta, no true ACS concerns on exam, chest pain was only pleuritic in nature, completely resolved with Tylenol and seemingly sparked by this URI. Young age and risk factors, low risk (3) HEART score - With patient's pain completely resolved, reassuring ED evaluation, unchanged respiratory status, patient was deemed stable to be discharged home with supportive care recommendations and given Celebrex and Flexeril for symptom management of his pleuritic chest pain and likely costochondritis, advised follow-up with PCP in a few days, discharged in stable condition with aunt at bedside. Lab Data 07/20/25 21:05 07/20/25 21:05 Radiology Impressions Chest X-Ray 07/20/25 19:13 IMPRESSION: No acute findings. Laboratory Results WBC 6.75 10^3/uL (3.29-11.43) 07/20/25 21:05 RBC 5.31 10^6/uL (3.85-5.65) 07/20/25 21:05 Hgb 15.20 g/dL (11.27-16.99) 07/20/25 21:05 Hct 45.5 % (37-53) 07/20/25 21:05 MCV 85.7 fl (82-101) 07/20/25 21:05 MCH 28.6 pg (27-33) 07/20/25 21:05 MCHC 33.4 g/dL (30-55) 07/20/25 21:05 RDW 12.7 % (12.1-15.1) 07/20/25 21:05 Plt Count 217 10^3/cmm (157-399) 07/20/25 21:05 MPV 10.6 fL (7.4-10.4) H 07/20/25 21:05 Neut % (Auto) 66.5 % 07/20/25 21:05 Lymph % (Auto) 20.6 % 07/20/25 21:05 [place] % (Auto) 11.0 % 07/20/25 21:05 Eos % (Auto) 0.6 % 07/20/25 21:05 Baso % (Auto) 0.6 % 07/20/25 21:05 Neut # (Auto) 4.49 10^3/uL (1.8-7.7) 07/20/25 21:05 Lymph # (Auto) 1.4 10^3/uL (0.8-4.8) 07/20/25 21:05 [place] # (Auto) 0.7 10^3/uL (0.2-0.9) 07/20/25 21:05 Eos # (Auto) 0.0 10^3/uL (0.0-0.8) 07/20/25 21:05 Baso # (Auto) 0.0 10^3/uL (0.0-0.1) 07/20/25 21:05 Nucleated RBC % (auto) 0 % 07/20/25 21:05 Nucleated RBCs # 0.0 /100WBC 07/20/25 21:05 Sodium 138 mmol/L (136-145) 07/20/25 21:05 Potassium 4.2 mmol/L (3.5-5.1) 07/20/25 21:05 Chloride 98 mmol/L (98-107) 07/20/25 21:05 Carbon Dioxide 28 mmol/L (22-29) 07/20/25 21:05 Anion Gap 16.2 (5-19) 07/20/25 21:05 BUN 15 mg/dL (6-20) 07/20/25 21:05 Creatinine 0.9 mg/dL (0.7-1.2) 07/20/25 21:05 GFR Calculation 105.5 mL/min (90-130) 07/20/25 21:05 Glucose 88 mg/dL (65-115) 07/20/25 21:05 Calculated Osmolality 286 mOsm/kg (285-295) 07/20/25 21:05 Calcium 10.0 mg/dL (8.5-10.5) 07/20/25 21:05 Total Bilirubin 0.5 mg/dL (0.15-1.2) 07/20/25 21:05 AST 28 U/L (0-40) 07/20/25 21:05 ALT 22 U/L (0-41) 07/20/25 21:05 Alkaline Phosphatase 60 U/L (40-130) 07/20/25 21:05 Troponin T Baseline 24 ng/L (0-15) H 07/20/25 21:05 Troponin T 60 Minute 21.16 ng/L (0-15) H 07/20/25 22:32 Delta Troponin T -2.84 ABS# (0-10) L 07/20/25 22:32 C-React Prot High Sens < 0.150 mg/dL (0.0-0.3) 07/20/25 21:05 Total Protein 7.3 g/dL (6.6-8.7) 07/20/25 21:05 Albumin 4.9 g/dL (3.5-5.2) 07/20/25 21:05 Globulin 2.4 g/dL (1.3-4.6) 07/20/25 21:05 All radiology interpretation(s) finalized by discharge Clincial Decision Support The following clinical decision support tools were used to aid in care of the patient HEART Score -> History: Slightly Suspicous, EKG: Non-specific Changes, Age: Less than 45 yrs, Risk Factors: 1 or 2 Risk Factors, Troponin: Baseline Trop 16-45 ng/L. Resulting HEART Score: 3. Discharge Plan Discharge Patient Disposition: Home Clinical Impression: Chest pain, Pleurisy Condition: Stable Prescriptions: New cyclobenzaprine 10 mg tablet 10 mg PO TID PRN (Reason: muscle spasm) Qty: 20 0RF celecoxib [Celebrex] 100 mg capsule 100 mg PO Q12H Qty: 20 0RF No Action promethazine 25 mg tablet 25 mg PO Q6H PRN (Reason: nausea and vomiting) Qty: 20 0RF sucralfate 1 gram tablet 1 g PO TID Discharge Orders: Discharge ED (Routine); Ordered 07/20/25 Ordered By: Vince Chanel Discharge Diet: Usual diet Discharge Activity: Increase activity as tolerated Patient Instructions: Opioid Safety, Pain Management, Patient Portal & Cecilia Instructions Activity Restrictions/Additional Instructions: You were seen for your chest pain, fatigue and headache, you were evaluated with an EKG, chest x-ray and laboratory studies that were ultimately reassuring. You improved with pain and nausea medication, fluids and were deemed stable to be discharged home. You most likely have a viral upper respiratory infection causing irritation of the lining of your lungs that causes the pain when you take deep breaths or cough. To help with this, use a stronger anti-inflammatory Celebrex 100 mg every 12 hours as needed, this is in place of ibuprofen so do not use that with this medication. You can still alternate this with Tylenol 650 mg every 6 hours as needed for pain. In addition, use a muscle relaxant Flexeril for any spasms or cramps that develop. Follow-up with your primary care physician early next week for reevaluation of your infection and pain. Return to the ED with severe worsening of her symptoms, fevers that do not improve with Tylenol, breathing difficulties, episodes of passing out, any other emergent concerns Print Language: Malian Coding Level of Care Code ED Congressional Assistant for Annie Nicolle Heart Score HEART Score Components History: Slightly Suspicous EKG: Non-specific Changes Age: Less than 45 yrs Risk Factors: 1 or 2 Risk Factors Troponin: Baseline Trop 16-45 ng/L HEART Score RESULT HEART Score: 3
== END 2025-07-20 23:45 | disposition home or self-care (01) ==
PROVIDERS: Emergency Provider Student in an Organized Health Care Education/Training Program
DX: R07.9 Chest pain, unspecified (principal); R09.1 Pleurisy; Z72.0 Tobacco use
CPT/HCPCS: 36415; 71045; 80053; 84484; 85025; 86141; 93005; 96361; 96374; 96375; 99285; J1885; J2405; J7030

== ENCOUNTER 2025-07-30 08:11 | Emergency (ER) | payer BC, MEDICAID, SELFPAY ==
--- OUTSIDE RECORDS SUMMARY | 2025-07-30 08:13 | XMS_ITS | Clinical Summary ---
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
[2025-07-30 08:16] VITALS: BP 133/73; PULSE 68; RESP 17; TEMP 36.4; O2SAT 98; BMI 21.2
--- NOTE | 2025-07-30 08:18 | W.ED.NAVMDI ---
HPI - Nausea/Vomiting/Diarrhea General: Chief complaint: Nausea/Vomiting/Diarrhea Stated complaint: n/v, chills, shaking Time Seen by Provider: 07/30/25 08:17 Source: patient Mode of arrival: ambulatory Limitations: no limitations History of Present Illness: 20-year-old male with history of cannabinoid hyperemesis syndrome patient states he started vomiting this morning at 6 AM. States he had multiple episodes of vomiting is not been able to tolerate any p.o. He does have diffuse abdominal cramping denies any worsening proving factors. Associated nausea: Yes Associated symtoms: Reports nausea Related Data Home Medications ?Medication ?Instructions ?Recorded ?Confirmed sucralfate 1 gram tablet 1 g PO TID 08/16/24 08/16/24 Previous Rx's ?Medication ?Instructions ?Recorded promethazine 25 mg tablet 25 mg PO Q6H PRN nausea and 06/19/25 vomiting #20 tabs celecoxib 100 mg capsule (Celebrex) 100 mg PO Q12H chest/rib pain #20 07/20/25 caps cyclobenzaprine 10 mg tablet 10 mg PO TID PRN muscle spasm #20 07/20/25 tabs ondansetron 4 mg disintegrating 4 mg PO Q6H PRN nausea and 07/30/25 tablet vomiting #14 tabs Allergies Allergy/AdvReac Type Severity Reaction Status Date / Time No Known Allergies Allergy Verified 09/28/24 15:49 Review of Systems GI: Reports: nausea and vomiting [facility] ED PFSH: Medical History (Updated 07/30/25 @ 09:08 by Abdulkadir Polo MD) Cannabinoid hyperemesis syndrome Chronic nausea Bradycardia Generalized anxiety disorder with panic attacks No pertinent family history Social History Smoking and tobacco/nicotine status: current every day tobacco/nicotine user Alcohol intake: current Alcohol intake frequency: holidays/special occasions only Substance/Drug Use: current Substance/Drug use frequency: daily Physical Exam Const: COMMON NORMALS: no acute distress, patient oriented x3 and healthy appearing HENMT: COMMON NORMALS: normocephalic and atraumatic HEAD & SCALP: normocephalic and atraumatic Neck/C-Spine: COMMON NORMALS: full ROM and supple Chest: COMMONS NORMALS: normal inspection of the chest Resp: COMMON NORMALS: normal respiratory effort Cardio: COMMON NORMALS: regular rate, regular rhythm and No murmurs present (Cardio) RATE: regular rate RHYTHM: regular rhythm GI: COMMON NORMALS: Normal to inspection, nondistended, normoactive bowel sounds present, Soft to palpation, non-tender and no masses PALPATION: Yes Soft to palpation Extremity: COMMON NORMALS: normal to inspection and full ROM Neuro: COMMON NORMALS: patient oriented x3, moves all extremities and no focal motor deficits Psych: COMMON NORMALS: mental status grossly normal, Normal thought process present and cooperative THOUGHT PROCESS: Normal thought process present Skin: COMMON NORMALS: no rashes or lesions noted and no wounds GENERAL SKIN EXAM: no rashes or lesions noted Course Vital Signs: Vital signs: Vital Signs Temperature 97.5 F L 07/30/25 08:16 Pulse Rate 68 07/30/25 08:16 Respiratory Rate 17 07/30/25 08:16 Blood Pressure 133/73 07/30/25 08:16 Pulse Oximetry 98 07/30/25 08:16 Oxygen Delivery Me thod Room Air 07/30/25 08:16 MDM - Nausea/Vomiting/Diarrhea Medical Decision Making Patient presents for nausea vomiting differential includes hyperemesis, gastritis, bowel obstruction. Patient has extensive history of cannabis induced hyperemesis. Patient feels much improved here after Reglan and Benadryl his white count here is normal patient is wanting to leave at this time his abdominal exam is benign we will prescribe him Zofran for home but he is follow-up PCP return if worsening. Medical Records I reviewed the patient's medical records. Lab Data I reviewed the patient's lab results. 07/30/25 08:26 Laboratory Results WBC 6.83 10^3/uL (3.29-11.43) 07/30/25 08:26 RBC 5.40 10^6/uL (3.85-5.65) 07/30/25 08:26 Hgb 15.50 g/dL (11.27-16.99) 07/30/25 08:26 Hct 47.8 % (37-53) 07/30/25 08:26 MCV 88.5 fl (82-101) 07/30/25 08:26 MCH 28.7 pg (27-33) 07/30/25 08: MCHC 32.4 g/dL (30-55) 07/30/25 08:26 RDW 12.5 % (12.1-15.1) 07/30/25 08:26 Plt Count 238 10^3/cmm (157-399) 07/30/25 08:26 MPV 11.0 fL (7.4-10.4) H 07/30/25 08:26 Neut % (Auto) 42.7 % 07/30/25 08:26 Lymph % (Auto) 41.7 % 07/30/25 08:26 [place] % (Auto) 9.5 % 07/30/25 08:26 Eos % (Auto) 4.2 % 07/30/25 08:26 Baso % (Auto) 0.9 % 07/30/25 08:26 Neut # (Auto) 2.91 10^3/uL (1.8-7.7) 07/30/25 08:26 Lymph # (Auto) 2.9 10^3/uL (0.8-4.8) 07/30/25 08:26 Dunn # (Auto) 0.7 10^3/uL (0.2-0.9) 07/30/25 08:26 Eos # (Auto) 0.3 10^3/uL (0.0-0.8) 07/30/25 08:26 Baso # (Auto) 0.1 10^3/uL (0.0-0.1) 07/30/25 08:26 Nucleated RBC % (auto) 0 % 07/30/25 08:26 Nucleated RBCs # 0.0 /100WBC 07/30/25 08:26 Sodium Cancelled 07/30/25 08:26 Potassium Cancelled 07/30/25 08:26 Chloride Cancelled 07/30/25 08:26 Carbon Dioxide Cancelled 07/30/25 08:26 Anion Gap Cancelled 07/30/25 08:26 BUN Cancelled 07/30/25 08:26 Creatinine Cancelled 07/30/25 08:26 GFR Calculation Cancelled 07/30/25 08:26 Glucose Cancelled 07/30/25 08:26 Calculated Osmolality Cancelled 07/30/25 08:26 Calcium Cancelled 07/30/25 08:26 Total Bilirubin Cancelled 07/30/25 08:26 AST Cancelled 07/30/25 08:26 ALT Cancelled 07/30/25 08:26 Alkaline Phosphatase Cancelled 07/30/25 08:26 Total Protein Cancelled 07/30/25 08:26 Albumin Cancelled 07/30/25 08:26 Globulin Cancelled 07/30/25 08:26 Lipase Cancelled 07/30/25 08:26 No radiology studies performed this visit Discharge Plan Discharge Patient Disposition: Home Clinical Impression: Cannabinoid hyperemesis syndrome Condition: Stable Prescriptions: New ondansetron 4 mg tablet,disintegrating 4 mg PO Q6H PRN (Reason: nausea and vomiting) Qty: 14 0RF No Action promethazine 25 mg tablet 25 mg PO Q6H PRN (Reason: nausea and vomiting) Qty: 20 0RF sucralfate 1 gram tablet 1 g PO TID cyclobenzaprine 10 mg tablet 10 mg PO TID PRN (Reason: muscle spasm) Qty: 20 0RF celecoxib [Celebrex] 100 mg capsule 100 mg PO Q12H Qty: 20 0RF Discharge Orders: Discharge ED (Routine); Ordered 07/30/25 Ordered By: Abdulkadir Polo Discharge Diet: Advance as tolerated Discharge Activity: Resume usual activity Patient Instructions: Acute Nausea and Vomiting (ED) Print Language: Serbian Coding Level of Care Code ED Laboratory Specialist for Annie Valverde
[2025-07-30] MEDS: metoclopramide 5 mg/mL SDV 2 mL 10 MG IVP (08:27)
[2025-07-30] MEDS: diphenhydrAMINE 50 mg/mL SDV 1mL IVP (08:28)
[2025-07-30] MEDS: LORazepam 2 mg/mL INJ 1 mL 1 MG IVP (08:30)
[2025-07-30 08:32] LABS: Hematocrit 47.8 % (37-53); Hemoglobin 15.50 g/dL (11.27-16.99); Mean Corpuscular HGB Conc 32.4 g/dL (30-55); Mean Corpuscular Hemoglobin 28.7 pg (27-33); Mean Corpuscular Volume 88.5 fl (82-101); Nucleated Red Blood Cells % 0 %; Platelet Count 238 10^3/cmm (157-399); Red Blood Count 5.40 10^6/uL (3.85-5.65); White Blood Count 6.83 10^3/uL (3.29-11.43)
[2025-07-30 09:30] VITALS: BP 130/74; PULSE 88; O2SAT 98
== END 2025-07-30 09:32 | disposition home or self-care (01) ==
PROVIDERS: Emergency Provider Emergency Medicine
DX: R11.16 Cannabis hyperemesis syndrome (principal); Z72.0 Tobacco use
CPT/HCPCS: 85025; 96361; 96374; 96375; 99284; J1200; J2060; J2765; J7030